=== PATIENT | female | born 1990 | race Caucasian/White ===

== ENCOUNTER 2016-07-10 14:06 | Emergency (ER) | payer MEDICAID ==
--- NOTE | 2016-07-10 14:29 | ER Document Report ---
ED Medical Screen (RME) - General Stated Complaint: PSYCH EVAL Mode of Arrival: Ambulatory Information source: Patient Notes: 26 y/o F presents to ED c/o SI. Reports hx of depression and similar episodes in the past. States "took a bunch of pills last night". Reports unknown amount or name of medication. Denies HI. I have greeted and performed a rapid initial assessment of this patient. A comprehensive ED assessment and evaluation of the patient, analysis of test results and completion of the medical decision making process will be conducted by additional ED providers. TRAVEL OUTSIDE OF THE U.S. IN LAST 30 DAYS: No - Related Data Allergies/Adverse Reactions: diphenhydramine HCl [From Benadryl] Allergy (Verified 03/23/16 10:51) latex [Latex] Allergy (Verified 03/23/16 10:51) amoxicillin [Amoxicillin] Adverse Reaction (Intermediate, Verified 03/23/16 10: 51) Hallucinations Past Medical History Neurological Medical History: Denies: Hx Seizures Renal/ Medical History: Reports: Hx Kidney Stones Psychiatric Medical History: Reports: Hx Bipolar Disorder, Hx Depression Past Surgical History: Reports: Hx Orthopedic Surgery - BL knee., Hx Tonsillectomy - and addenoidectomy. Denies: Hx Hysterectomy - Immunizations Hx Diphtheria, Pertussis, Tetanus Vaccination: No Physical Exam - Vital signs Vitals: Temp Pulse BP Pulse Ox 98.2 F 84 118/65 98 07/10/16 14:19 07/10/16 14:19 07/10/16 14:19 07/10/16 14:19 - General General appearance: Appears well, Alert In distress: None - calm and cooperative in RME. Course - Vital Signs Vital signs: Temp Pulse Resp BP Pulse Ox 98.2 F 84 118/65 98 07/10/16 14:19 07/10/16 14:19 07/10/16 14:19 07/10/16 14:19
[2016-07-10 15:05] LABS: ABSOLUTE EOSINOPHILS # (AUTO) 0.1 10^3/uL (0.0-0.6); ABSOLUTE LYMPHOCYTES (AUTO) 2.1 10^3/uL (0.5-4.7); ABSOLUTE MONOCYTES (AUTO) 0.7 10^3/uL (0.1-1.4); ABSOLUTE NEUT (AUTO) 5.9 10^3/uL (1.7-8.2); BASOPHILS % (AUTO) 0.2 % (0-2); HEMATOCRIT 43.3 % (36.0-47.0); HEMOGLOBIN 13.8 g/dL (12.0-15.5); HGB HCT DIFFERENCE -1.9; LYMPHOCYTES % (AUTO) 23.9 % (13-45); MEAN CORPUSCULAR HEMOGLOBIN 28.6 pg (27.0-33.4); MEAN CORPUSCULAR VOLUME 89 fl (80-97); MONOCYTES % (AUTO) 7.6 % (3-13); RED BLOOD COUNT 4.84 10^6/uL (3.72-5.28); RED CELL DISTRIBUTION WIDTH 13.4 % (11.5-14.0); SEGMENTED NEUTROPHILS % (AUTO) 67.3 % (42-78); WHITE BLOOD COUNT 8.8 10^3/uL (4.0-10.5)
[2016-07-10 15:25] LABS: ALANINE AMINOTRANSFERASE 25 U/L (9-52); ALBUMIN 4.8 g/dL (3.5-5.0); ALCOHOL < 10 mg/dL (NONE DETECTED); ALKALINE PHOSPHATASE 66 U/L (38-126); ANION GAP 13 (5-19); ASPARTATE AMINO TRANSFERASE 19 U/L (14-36); BILIRUBIN,TOTAL 0.7 mg/dL (0.2-1.3); BLOOD UREA NITROGEN 13 mg/dL (7-20); CALCIUM 9.9 mg/dL (8.4-10.2); CARBON DIOXIDE 26 mmol/L (22-30); CHLORIDE 104 mmol/L (98-107); CREATININE RESULT 0.78 mg/dL (0.52-1.25); GLUCOSE 91 mg/dL (75-110); POTASSIUM 4.4 mmol/L (3.6-5.0); SODIUM 142.5 mmol/L (137-145); TOTAL PROTEIN 7.5 g/dL (6.3-8.2)
--- NOTE | 2016-07-10 15:30 | ER Document Report ---
ED Psych Disorder / Suicide - General Time seen by provider: 14:50 Mode of Arrival: Ambulatory Information source: Patient, Friend, [facility] Records TRAVEL OUTSIDE OF THE U.S. IN LAST 30 DAYS: No <RICARDO PONCE - Last Filed: 07/10/16 16:06> <ESTRELLITA ROCHA - Last Filed: 07/11/16 11:49> - General Chief Complaint: Suicidal Ideation Stated Complaint: PSYCH EVAL Notes: This 26-year-old female patient with bipolar disorder and depression comes emergency room complaining of suicidal ideation. She states she took several of her medicines yesterday afternoon about 2:30 PM because she did not want to feel anything anymore. She cannot tell me the names of the medicines that she took, because she does not know the names of several of her medications. She gets her healthcare at [facility]. She states she still feels like she wants to harm herself. (RICARDO PONCE) - Related Data Allergies/Adverse Reactions: diphenhydramine HCl [From Benadryl] Allergy (Verified 03/23/16 10:51) latex [Latex] Allergy (Verified 03/23/16 10:51) amoxicillin [Amoxicillin] Adverse Reaction (Intermediate, Verified 03/23/16 10: 51) Hallucinations Home Medications: Current Home Medications Cariprazine Hydrochloride [Vraylar] 6 mg PO DAILY 07/10/16 [History] Clonazepam [Clonazepam] 0.5 mg PO BID PRN 07/10/16 [History] Dextroamphetamine/Amphetamine [Dextroamp-Amphetamin 30 mg Tab] 30 mg PO DAILY [History] Fluoxetine HCl [Fluoxetine HCl] 20 mg PO DAILY 07/10/16 [History] Hydroxyzine Pamoate [Vistaril 25 mg Capsule] 25 mg PO DAILY 07/10/16 [History] Past Medical History - General Information source: Patient - Social History Smoking Status: Current Every Day Smoker Cigarette use (# per day): Yes Chew tobacco use (# tins/day): No Smoking Education Provided: No Frequency of alcohol use: Social Drug Abuse: Marijuana Occupation: [employer] Lives with: Family Family History: Reviewed & Not Pertinent - pt is adopted unsure of family history Patient has suicidal ideation: Yes Patient has homicidal ideation: No - Past Medical History Cardiac Medical History: Reports: None Pulmonary Medical History: Reports: None EENT Medical History: Reports: None Neurological Medical History: Reports: None Endocrine Medical History: Reports: None Renal/ Medical History: Reports: Hx Kidney Stones GI Medical History: Reports: None Musculoskeltal Medical History: Reports None Skin Medical History: Reports None Psychiatric Medical History: Reports: Hx Bipolar Disorder, Hx Depression Past Surgical History: Reports: Hx Orthopedic Surgery - BL knee., Hx Tonsillectomy - and addenoidectomy - Immunizations Hx Diphtheria, Pertussis, Tetanus Vaccination: No <RICARDO PONCE - Last Filed: 07/10/16 16:06> Review of Systems - Review of Systems Constitutional: No symptoms reported EENT: No symptoms reported Cardiovascular: No symptoms reported Respiratory: No symptoms reported Gastrointestinal: No symptoms reported Genitourinary: No symptoms reported Female Genitourinary: No symptoms reported Musculoskeletal: No symptoms reported Skin: No symptoms reported Hematologic/Lymphatic: No symptoms reported Neurological/Psychological: Depression <RICARDO PONCE - Last Filed: 07/10/16 16:06> Physical Exam - Vital signs Interpretation: Normal - General General appearance: Appears well, Alert In distress: None - HEENT Head: Normocephalic, Atraumatic Eyes: Normal Pupils: PERRL Pharynx: Normal Neck: Normal - Respiratory Respiratory status: No respiratory distress Breath sounds: Normal - Cardiovascular Rhythm: Regular Heart sounds: Normal auscultation Murmur: No - Abdominal Inspection: Normal - Back Back: Normal - Extremities General upper extremity: Normal inspection General lower extremity: Normal inspection - Neurological Neuro grossly intact: Yes - Psychological Associated symptoms: Depressed - Skin Skin Temperature: Warm Skin Moisture: Dry Skin Color: Normal <RICARDO PONCE - Last Filed: 07/10/16 16:06> Course - Laboratory Result Diagrams: 07/10/16 14:44 07/10/16 14:44 <RICARDO PONCE - Last Filed: 07/10/16 16:06> - Laboratory Result Diagrams: 07/10/16 14:44 07/10/16 14:44 <ESTRELLITA ROCHA - Last Filed: 07/11/16 11:49> - Re-evaluation Re-evalutation: 07/11/16 11:48 Patient has remained asymptomatic during her stay in the emergency department and hemodynamically stable. She denies suicidal homicidal ideation currently denies any audio or visual hallucinations. Mental health providers also evaluated patient and she has outpatient referral scheduled and will be discharged in care of her mother. (ESTRELLITA ROCHA) - Vital Signs Vital signs: Temp Pulse Resp BP Pulse Ox 98.1 F 73 16 109/58 L 100 07/11/16 05:53 07/11/16 05:53 07/11/16 05:53 07/11/16 05:53 07/11/16 05:53 (RICARDO PONCE) (ESTRELLITA ROCHA) - Laboratory Laboratory results interpreted by me: 07/10/16 07/10/16 14:44 14:44 Urine Blood MODERATE H Salicylates < 1.0 L Acetaminophen < 10 L (ESTRELLITA ROCHA) Discharge <RICARDO PONCE - Last Filed: 07/10/16 16:06> <ESTRELLITA ROCHA - Last Filed: 07/11/16 11:49> - Discharge Clinical Impression: Suicidal ideation Overdose Qualifiers: Encounter type: initial encounter Injury intent: intentional self-harm Qualified Code(s): T50.902A - Poisoning by unspecified drugs, medicaments and biological substances, intentional self-harm, initial encounter Depression Qualifiers: Depression Type: unspecified Qualified Code(s): F32.9 - Major depressive disorder, single episode, unspecified Condition: Stable Disposition: HOME, SELF-CARE Additional Instructions: Bipolar Disorder Bipolar disorder is also called manic-depressive disorder. Depression alternates with brain hyperactivity called alyssia. Each phase lasts from several days to a few weeks. We don't know exactly what causes bipolar disorder , but it's treatable. During the "manic phase," you may feel elated and energetic. You may have racing thoughts, rapid speech, increased activity, and grandiose ideas. During this time, you may not realize how poor your judgement is. Inappropriate spending, drug abuse, excessive alcohol use, marriage problems, and irresponsible sexual behavior are common during the manic phase. During the "depressive phase," you might feel depressed, guilty, worthless , fatigued, and unable to concentrate. You might have thoughts of suicide. Good treatments are available for bipolar disorder. [place] is a classic drug for bipolar disorder, and is still often useful. If the manic phase is very mild, an antidepressant alone can be prescribed. If the manic phase is very severe, an antipsychotic medicine (such as Haldol) may be needed. The treatment must be matched to your symptoms, so it's important to work closely with your psychiatric care provider. Contact your physician, the hospital emergency center, crisis line, or your counsellor if you are losing control or having self-destructive thoughts. Follow-up with [facility] in [place] on July 15 10:40 AM. Follow-up with [facility] in [facility] for therapy on July 20 at 9 AM
[2016-07-10] MEDS ORDERED: NICOTINE 14 MG/24 HR PATCH.TD24 TD ONE (16:09)
[2016-07-10 16:29] LABS: APPEARANCE,URINE TURBID; BILIRUBIN,URINE NEGATIVE (NEGATIVE); GLUCOSE, URINE NEGATIVE (NEGATIVE); KETONES,URINE NEGATIVE (NEGATIVE); LEUKOCYTE ESTERASE,URINE NEGATIVE (NEGATIVE); NITRITE,URINE NEGATIVE (NEGATIVE); PROTEIN,URINE NEGATIVE (NEGATIVE); URINE SPECIFIC GRAVITY 1.021; UROBILINOGEN,URINE NEGATIVE mg/dL (<2.0)
[2016-07-10 16:40] LABS: URINE BARBITURATES SCREEN NEGATIVE; URINE METHADONE SCREEN NEGATIVE; URINE PHENCYCLIDINE SCREEN NEGATIVE
[2016-07-10] MEDS ORDERED: HYDROXYZINE PAMOATE 50 MG CAPSULE PO PRN (17:40)
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
--- NOTE | 2016-07-10 20:36 | EKG REPORT ---
SEVERITY:- NORMAL ECG - SINUS RHYTHM : Confirmed by: Jared Duffy MD 10-Jul-2016 20:35:20
--- NOTE | 2016-07-11 10:06 | PSYCHOLOGICAL NOTE ---
Psych Note - Psych Note Psych Note: Conducted check-in on patient who is a 26-year-old female voluntarily seeking assistance for her symptoms associated with bipolar disorder. Patient initially presented via her ex- do to increased mood lability, suicidal ideations (with no intent or plan) depression, and tearfulness. Patient this morning states she is feeling better and got some rest. Patient reports she had time to think overnight and has reevaluated her personal relationship. Patient denies wanting to harm herself. Patient reports she would prefer to follow-up with her provider, [facility], tomorrow at her scheduled counseling session. Patient states her mother is likely back from [place]. Encouraged patient to call her mother and asked her to come to the hospital to review precautionary measures for potential discharge in plan of care. Patient denies suicidal/homicidal ideations, intent, plan, means. Patient's mother states: [facility] Patient is alert and oriented. Mood is euthymic with normal affect. Patient denies suicidal/homicidal ideations, intent, plan, means. Patient denies A/VH; delusions not noted. Thought processes were organized. Conversational speech was low for rate, tone, and prosody. Intellectual abilities were estimated within average range. Attention and focus were fair. Insight, judgment, impulse control were fair. Unspecified bipolar and related disorder.
[2016-07-11 12:02] VITALS: BP 122/57
== END 2016-07-11 12:08 | disposition home or self-care (01) ==
LOC: ER 14:06
DX: T50.902A Poisoning by unspecified drugs, medicaments and biological substances, intentional self-harm, initial encounter (principal); F31.9 Bipolar disorder, unspecified; F17.210 Nicotine dependence, cigarettes, uncomplicated; Z88.8 Allergy status to other drugs, medicaments and biological substances; Z91.040 Latex allergy status
CPT/HCPCS: 93005; 99285; 36415; 80307 ×4; 84703; 85025; 80053; 81001; 93010; J3490 ×2

== ENCOUNTER → 2016-10-26 | Outpatient (CLI) | payer MEDICAID ==
[2016-10-26 21:41] LABS: CHLAM PCR DETECTED (NOT DETECT)
== END ==
LOC: LAB 20:05 → MERGE 20:05
PROVIDERS: ATTEND Nurse Practitioner Acute Care
DX: N89.8 Other specified noninflammatory disorders of vagina (principal)
CPT/HCPCS: 87210; 87491; 87591

== ENCOUNTER 2017-03-07 11:10 | Emergency (ER) | payer SELFPAY ==
--- NOTE | 2017-03-07 11:56 | ER Document Report ---
ED Medical Screen (RME) - General Chief Complaint: Abdominal Pain Stated Complaint: VOMITING Time Seen by Provider: 03/07/17 11:55 Notes: Patient reports 2 weeks of intermittent abdominal pain. Pain is diffuse. She states she has been vomiting daily and that she has dark foul-smelling bowel movements. She denies any urinary symptoms. She states she is also had decreased appetite. She denies any previous abdominal surgeries. TRAVEL OUTSIDE OF THE U.S. IN LAST 30 DAYS: No - Related Data Allergies/Adverse Reactions: diphenhydramine HCl [From Benadryl] Allergy (Verified 03/07/17 11:33) latex [Latex] Allergy (Verified 03/07/17 11:33) amoxicillin [Amoxicillin] Adverse Reaction (Intermediate, Verified 03/07/17 11: 33) Hallucinations Past Medical History Neurological Medical History: Denies: Hx Seizures Renal/ Medical History: Reports: Hx Kidney Stones. Denies: Hx Peritoneal Dialysis Psychiatric Medical History: Reports: Hx Bipolar Disorder, Hx Depression Past Surgical History: Reports: Hx Orthopedic Surgery - BL knee., Hx Tonsillectomy - and addenoidectomy. Denies: Hx Hysterectomy - Immunizations Hx Diphtheria, Pertussis, Tetanus Vaccination: No Physical Exam - Vital signs Vitals: Temp Pulse Resp BP Pulse Ox 98.1 F 88 16 126/82 H 100 03/07/17 11:33 03/07/17 11:33 03/07/17 11:33 03/07/17 11:33 03/07/17 11:33 Course - Vital Signs Vital signs: Temp Pulse Resp BP Pulse Ox 98.1 F 88 16 126/82 H 100 03/07/17 11:33 03/07/17 11:33 03/07/17 11:33 03/07/17 11:33 03/07/17 11:33
[2017-03-07 12:33] LABS: ABSOLUTE EOSINOPHILS # (AUTO) 0.1 10^3/uL (0.0-0.6); ABSOLUTE LYMPHOCYTES (AUTO) 2.3 10^3/uL (0.5-4.7); ABSOLUTE MONOCYTES (AUTO) 0.7 10^3/uL (0.1-1.4); ABSOLUTE NEUT (AUTO) 7.2 10^3/uL (1.7-8.2); BASOPHILS % (AUTO) 0.3 % (0-2); EOSINOPHILS % (AUTO) 1.1 % (0-6); HEMATOCRIT 42.7 % (36.0-47.0); HEMOGLOBIN 14.7 g/dL (12.0-15.5); HGB HCT DIFFERENCE 1.4; MEAN CORPUSCULAR HEMOGLOBIN 30.4 pg (27.0-33.4); MEAN CORPUSCULAR HGB CONC 34.4 g/dL (32.0-36.0); MEAN CORPUSCULAR VOLUME 88 fl (80-97); MONOCYTES % (AUTO) 7.1 % (3-13); RED BLOOD COUNT 4.83 10^6/uL (3.72-5.28); RED CELL DISTRIBUTION WIDTH 13.3 % (11.5-14.0); SEGMENTED NEUTROPHILS % (AUTO) 69.5 % (42-78); WHITE BLOOD COUNT 10.4 10^3/uL (4.0-10.5)
[2017-03-07 12:42] LABS: AMORPHOUS SEDIMENT,URINE TRACE /HPF; APPEARANCE,URINE CLOUDY; BILIRUBIN,URINE NEGATIVE (NEGATIVE); GLUCOSE, URINE NEGATIVE (NEGATIVE); KETONES,URINE NEGATIVE (NEGATIVE); LEUKOCYTE ESTERASE,URINE NEGATIVE (NEGATIVE); NITRITE,URINE NEGATIVE (NEGATIVE); PROTEIN,URINE NEGATIVE (NEGATIVE); URINE SPECIFIC GRAVITY 1.012; UROBILINOGEN,URINE NEGATIVE mg/dL (<2.0)
[2017-03-07] MEDS ORDERED: ONDANSETRON HCL INJ/PF 4 MG/2 ML SDV IV ONE (12:51)
[2017-03-07] MEDS ORDERED: MORPHINE SULFATE 10 MG/ML INJ IV ONE (12:52)
[2017-03-07 12:53] LABS: ALANINE AMINOTRANSFERASE 21 U/L (9-52); ALKALINE PHOSPHATASE 73 U/L (38-126); ANION GAP 13 (5-19); ASPARTATE AMINO TRANSFERASE 17 U/L (14-36); BILIRUBIN,DIRECT 0.4 mg/dL (0.0-0.4); BILIRUBIN,TOTAL 0.5 mg/dL (0.2-1.3); BLOOD UREA NITROGEN 13 mg/dL (7-20); CALCIUM 10.2 mg/dL (8.4-10.2); CARBON DIOXIDE 25 mmol/L (22-30); CHLORIDE 103 mmol/L (98-107); CREATININE RESULT 0.85 mg/dL (0.52-1.25); GLUCOSE 81 mg/dL (75-110); POTASSIUM 4.4 mmol/L (3.6-5.0); SODIUM 140.5 mmol/L (137-145); TOTAL PROTEIN 8.1 g/dL (6.3-8.2)
[2017-03-07] MEDS ORDERED: IBUPROFEN 800 MG TABLET PO ONE (14:31)
--- NOTE | 2017-03-07 14:55 | ER Document Report ---
ED GI/ - General Chief Complaint: Abdominal Pain Stated Complaint: VOMITING Time Seen by Provider: 03/07/17 11:55 Mode of Arrival: Ambulatory Information source: Patient Notes: 27-year-old female presents to ED for complaint of abdominal pain. She told the people in pit that it was right lower quadrant but when I assessed of the pain is generalized there is no pain in the right lower quadrant but there is pain in the right upper left upper and left lower quadrants. TRAVEL OUTSIDE OF THE U.S. IN LAST 30 DAYS: No - HPI Patient complains to provider of: Abdominal pain, Pelvic pain Onset: Other - 2 weeks Timing/Duration: Intermittent Quality of pain: Sharp, Throbbing Severity at maximum: Severe Severity in ED: Severe Pain Level: 5 Location: LUQ, LLQ, RUQ, Pelvis, Vaginal Vaginal bleeding (Compared to normal period): None Associated symptoms: Nausea, Other - Sore breast Exacerbated by: Movement, Walking Relieved by: Denies Similar symptoms previously: Yes Recently seen / treated by doctor: No - Related Data Allergies/Adverse Reactions: diphenhydramine HCl [From Benadryl] Allergy (Verified 03/07/17 11:33) latex [Latex] Allergy (Verified 03/07/17 11:33) amoxicillin [Amoxicillin] Adverse Reaction (Intermediate, Verified 03/07/17 11: 33) Hallucinations Past Medical History - General Information source: Patient - Social History Smoking Status: Current Every Day Smoker Cigarette use (# per day): Yes - Half pack per day Chew tobacco use (# tins/day): No Smoking Education Provided: Yes - Less than 2 minutes Frequency of alcohol use: Occasional Drug Abuse: None Occupation: [employer] Lives with: Spouse/Significant other Family History: Reviewed & Not Pertinent - pt is adopted unsure of family history Patient has suicidal ideation: No Patient has homicidal ideation: No - Past Medical History Cardiac Medical History: Reports: None Pulmonary Medical History: Reports: None EENT Medical History: Reports: None Neurological Medical History: Reports: None Endocrine Medical History: Reports: None Renal/ Medical History: Reports: Hx Kidney Stones Malignancy Medical History: Reports: None GI Medical History: Reports: None Musculoskeltal Medical History: Reports None Skin Medical History: Reports None Psychiatric Medical History: Reports: Hx Bipolar Disorder, Hx Depression Traumatic Medical History: Reports: None Infectious Medical History: Reports: None Past Surgical History: Reports: Hx Orthopedic Surgery - BL knee., Hx Tonsillectomy - and addenoidectomy - Immunizations Hx Diphtheria, Pertussis, Tetanus Vaccination: No Review of Systems - Review of Systems Constitutional: No symptoms reported EENT: No symptoms reported Cardiovascular: No symptoms reported Respiratory: No symptoms reported Gastrointestinal: Abdominal pain - Pelvic pain and generalized abdominal pain, Nausea Genitourinary: No symptoms reported Female Genitourinary: No symptoms reported Musculoskeletal: No symptoms reported Skin: No symptoms reported Hematologic/Lymphatic: No symptoms reported Neurological/Psychological: No symptoms reported -: Yes All other systems reviewed and negative Physical Exam - Vital signs Vitals: Temp Pulse Resp BP Pulse Ox 98.1 F 88 16 126/82 H 100 03/07/17 11:33 03/07/17 11:33 03/07/17 11:33 03/07/17 11:33 03/07/17 11:33 Interpretation: Normal - General General appearance: Appears well, Alert - HEENT Head: Normocephalic, Atraumatic Eyes: Normal Pupils: PERRL - Respiratory Respiratory status: No respiratory distress Chest status: Nontender Breath sounds: Normal Chest palpation: Normal - Cardiovascular Rhythm: Regular Heart sounds: Normal auscultation Murmur: No - Abdominal Inspection: Normal Distension: No distension Bowel sounds: Normal Tenderness: Tender - Generalized Organomegaly: No organomegaly - Genitourinary External exam: Normal Speculum exam: Cervix closed, Vaginal discharge Vaginal bleeding: None - Minimal Bimanuel exam: Cervical motion tender, Adnexal tenderness - Back Back: Normal, Nontender - Extremities General upper extremity: Normal inspection, Nontender, Normal color, Normal ROM , Normal temperature General lower extremity: Normal inspection, Nontender, Normal color, Normal ROM , Normal temperature, Normal weight bearing. No: Courtney's sign - Neurological Neuro grossly intact: Yes Cognition: Normal Orientation: AAOx4 Prakash Coma Scale Eye Opening: Spontaneous Prakash Coma Scale Verbal: Oriented Bonham Coma Scale Motor: Obeys Commands Prakash Coma Scale Total: 15 Speech: Normal Motor strength normal: LUE, RUE, LLE, RLE Sensory: Normal - Psychological Associated symptoms: Normal affect, Normal mood - Skin Skin Temperature: Warm Skin Moisture: Dry Skin Color: Normal Course - Re-evaluation Re-evalutation: 03/07/17 16:52 Discussed labs and ultrasound with patient. Reports given to patient to follow- up with her primary doctor. Patient was discharged home - Vital Signs Vital signs: Temp Pulse Resp BP Pulse Ox 98.7 F 78 15 142/74 H 98 03/07/17 15:07 03/07/17 15:07 03/07/17 15:07 03/07/17 15:07 03/07/17 15:07 - Laboratory Result Diagrams: 03/07/17 12:13 03/07/17 12:13 Laboratory results interpreted by me: 03/07/17 11:57 Urine Blood SMALL H - Diagnostic Test Radiology reviewed: Image reviewed, Reports reviewed Discharge - Discharge Clinical Impression: Abdominal pain Qualifiers: Abdominal location: generalized Qualified Code(s): R10.84 - Generalized abdominal pain Condition: Stable Disposition: HOME, SELF-CARE Additional Instructions: ABDOMINAL PAIN: There are many causes of abdominal pain. Pain can mean a serious problem requiring surgery (such as appendicitis). It can also be an innocent problem that goes away on its own (such as a viral infection). Often, time must pass to determine the cause of pain. The physician does not feel that hospitalization is necessary, at present. Things may change within the next 24 hours. Call the doctor or come back for re- examination if any problems occur, such as: (1) Pain that becomes more severe, steady, or becomes concentrated in one specific area. Also, pain that is more severe with movement or coughing. (2) Vomiting that persists or becomes more frequent. (3) Blood in the vomitus, urine, or bowel movements. Blood in the stool may have a tarry or black appearance. (4) Shaking chills or fever greater than 100 degrees F. (5) The abdomen becomes more distended or swollen. (6) Bowel movements cease. (7) Failure to improve as expected. NORMAL EXAM AND WORKUP: At this time, your examination and workup show no significant abnormality. No significant abnormal physical findings are noted. All laboratory, EKG, and imaging (x-ray, CT scans, ultrasound) studies that were ordered show no significant abnormality. Although your examination and all studies that were ordered showed no significant abnormal finding, there are no examinations and no studies that are 100% accurate. There is always the possibility that some abnormality could exist and not be detected with physical examination or within the limits and capabilities of laboratory and other studies. You should return or follow up as you were instructed on your visit today for further evaluation if your symptoms do not resolve. PAIN MEDICATION INJECTION: You have received an injection of a pain medication. You should experience significant pain relief within 45 minutes. This drug is a narcotic - - it will impair your judgement, slow your reaction time and make you sleepy ( as well as relieve your pain). Narcotics also can cause nausea. You should not drive, work with machinery, or perform any task requiring mental alertness until all effects of the medication are gone -- six to eight hours. Do not take any alcohol, or sedatives, and do not take any other medication without checking with your physician. ANTINAUSEA MEDICATION: You have been given a medication to suppress nausea and vomiting. This type of medication can be given as a shot, pill, or suppository. It will usually last for many hours. Pills and shots usually last six to eight hours, suppositories last about 12 hours. For the typical illness, only one or two doses of the medication may be necessary. Mild lightheadedness may occur. This type of medicine can cause drowsiness. Do not drive or operate dangerous machinery while under its influence. Do not mix with alcohol. See your doctor at once if you have muscle spasms or tightness, or uncontrollable motions (particularly of the neck, mouth, or jaw). Persistent vomiting or severe lightheadedness should also be evaluated by the physician. FOLLOW-UP CARE: If you have been referred to a physician for follow-up care, call the physician s office for an appointment as you were instructed or within the next two days. If you experience worsening or a significant change in your symptoms, notify the physician immediately or return to the Emergency Department at any time for re-evaluation. Forms: Elevated Blood Pressure, Smoking Cessation Education, Return to Work Referrals: [facility] [Provider Group] - Follow up as needed
[2017-03-07 16:20] LABS: CHLAM PCR NOT DETECTED (NOT DETECT)
--- NOTE | 2017-03-07 16:21 | RADIOLOGY REPORT (SQ) ---
EXAM DESCRIPTION: U/S NON-OB PELVIS TV W/O DOP COMPLETED DATE/TIME: 03/07/2017 4:10 pm REASON FOR STUDY: pelvic pain COMPARISON: 06/19/2015. TECHNIQUE: Dynamic and static grayscale images acquired of the pelvis via transvaginal approach and recorded on PACS. Additional selected color Doppler and spectral images recorded. LIMITATIONS: None. FINDINGS: UTERUS: Contour normal. No mass. ENDOMETRIAL STRIPE: No focal or generalized thickening. No masses. CERVIX: No nabothian cysts. RIGHT OVARY: Poorly visualized. 2.4 cm simple appearing cyst. RIGHT OVARY DOPPLER: Difficult to evaluate due to limited visualization. LEFT OVARY: No abnormal masses. LEFT OVARY DOPPLER: Normal arterial vascular flow without evidence for torsion. FREE FLUID: None noted. OTHER: No other significant finding. MEASUREMENTS: UTERUS: 4.5 x 4.9 x 9.0 cm. ENDOMETRIAL STRIPE: 11 mm. RIGHT OVARY: Poorly visualized. LEFT OVARY: 2.3 x 2.6 x 3.2 cm. IMPRESSION: THE RIGHT OVARY IS DIFFICULT TO VISUALIZE. THERE IS A 2.4 CM SIMPLE CYST, SIMILAR TO TH E PRIOR STUDY. NO OTHER SIGNIFICANT FINDING. TECHNICAL DOCUMENTATION: JOB ID: [id number] [employer]- All Rights Reserved
[2017-03-07 17:04] VITALS: BP 119/63
== END 2017-03-07 17:04 | disposition home or self-care (01) ==
LOC: ER 11:10
DX: R10.84 Generalized abdominal pain (principal); R10.31 Right lower quadrant pain; R11.0 Nausea; F17.210 Nicotine dependence, cigarettes, uncomplicated; Z91.040 Latex allergy status; Z88.0 Allergy status to penicillin; Z87.442 Personal history of urinary calculi
CPT/HCPCS: 99284; 96374; 96375; 36415; 87210; 85025; 81025; 80053; 81001; 87491; 87591; 76830; J2270; J2405

== ENCOUNTER 2017-04-06 14:47 | Emergency (ER) | payer SELFPAY ==
[2017-04-06 14:59] VITALS: BP 123/81
[2017-04-06] MEDS ORDERED: METOCLOPRAMIDE HCL 10 MG TABLET PO ONE (15:08)
[2017-04-06 15:34] LABS: ABSOLUTE EOSINOPHILS # (AUTO) 0.2 10^3/uL (0.0-0.6); ABSOLUTE LYMPHOCYTES (AUTO) 2.5 10^3/uL (0.5-4.7); ABSOLUTE MONOCYTES (AUTO) 0.7 10^3/uL (0.1-1.4); ABSOLUTE NEUT (AUTO) 7.7 10^3/uL (1.7-8.2); BASOPHILS % (AUTO) 0.4 % (0-2); EOSINOPHILS % (AUTO) 1.5 % (0-6); HEMATOCRIT 42.8 % (36.0-47.0); HEMOGLOBIN 14.8 g/dL (12.0-15.5); HGB HCT DIFFERENCE 1.6; LYMPHOCYTES % (AUTO) 22.4 % (13-45); MEAN CORPUSCULAR HEMOGLOBIN 30.3 pg (27.0-33.4); MEAN CORPUSCULAR HGB CONC 34.7 g/dL (32.0-36.0); MEAN CORPUSCULAR VOLUME 88 fl (80-97); MONOCYTES % (AUTO) 6.2 % (3-13); RED BLOOD COUNT 4.89 10^6/uL (3.72-5.28); RED CELL DISTRIBUTION WIDTH 12.7 % (11.5-14.0); SEGMENTED NEUTROPHILS % (AUTO) 69.5 % (42-78); WHITE BLOOD COUNT 11.1 10^3/uL (4.0-10.5)
[2017-04-06 15:55] LABS: ALANINE AMINOTRANSFERASE 30 U/L (9-52); ALBUMIN 5.1 g/dL (3.5-5.0); ALKALINE PHOSPHATASE 79 U/L (38-126); ANION GAP 13 (5-19); ASPARTATE AMINO TRANSFERASE 18 U/L (14-36); BILIRUBIN,DIRECT 0.4 mg/dL (0.0-0.4); BILIRUBIN,TOTAL 0.4 mg/dL (0.2-1.3); BLOOD UREA NITROGEN 14 mg/dL (7-20); CALCIUM 9.9 mg/dL (8.4-10.2); CARBON DIOXIDE 25 mmol/L (22-30); CHLORIDE 106 mmol/L (98-107); CREATININE RESULT 0.89 mg/dL (0.52-1.25); GLUCOSE 89 mg/dL (75-110); LIPASE 72.5 U/L (23-300); POTASSIUM 4.3 mmol/L (3.6-5.0); SODIUM 144.3 mmol/L (137-145); TOTAL PROTEIN 8.5 g/dL (6.3-8.2)
--- NOTE | 2017-04-06 16:50 | ER Document Report ---
ED General - General Chief Complaint: Abdominal Pain Stated Complaint: FLU LIKE SYMPTOMS Time Seen by Provider: 04/06/17 15:07 TRAVEL OUTSIDE OF THE [place] IN LAST 30 DAYS: No - HPI Patient complains to provider of: Nausea vomiting burning abdominal pain Notes: Patient is coming in for evaluation of nausea vomiting burning abdominal pain. Patient resting comfortably upon my evaluation no signs of any obvious distress of symptoms ongoing for the last 24 hours. Patient is very concerned that she may be due to missed.. Denies any other symptoms denies fever chills chest pain - Related Data Allergies/Adverse Reactions: diphenhydramine HCl [From Benadryl] Allergy (Verified 04/06/17 14:59) latex [Latex] Allergy (Verified 04/06/17 14:59) amoxicillin [Amoxicillin] Adverse Reaction (Intermediate, Verified 04/06/17 14: 59) Hallucinations Past Medical History - Social History Smoking Status: Current Every Day Smoker Chew tobacco use (# tins/day): No Frequency of alcohol use: None Drug Abuse: None Family History: Reviewed & Not Pertinent - pt is adopted unsure of family history Neurological Medical History: Denies: Hx Seizures Renal/ Medical History: Reports: Hx Kidney Stones. Denies: Hx Peritoneal Dialysis Psychiatric Medical History: Reports: Hx Bipolar Disorder, Hx Depression Past Surgical History: Reports: Hx Orthopedic Surgery - BL knee., Hx Tonsillectomy - and addenoidectomy. Denies: Hx Hysterectomy - Immunizations Hx Diphtheria, Pertussis, Tetanus Vaccination: No Review of Systems - Review of Systems Constitutional: No symptoms reported EENT: No symptoms reported Cardiovascular: No symptoms reported Respiratory: No symptoms reported Gastrointestinal: Abdominal pain, Nausea, Vomiting Genitourinary: No symptoms reported Female Genitourinary: No symptoms reported Musculoskeletal: No symptoms reported Skin: No symptoms reported Hematologic/Lymphatic: No symptoms reported Neurological/Psychological: No symptoms reported -: Yes All other systems reviewed and negative Physical Exam - Vital signs Vitals: Temp Pulse Resp BP Pulse Ox 98.9 F 94 16 123/81 97 04/06/17 14:57 04/06/17 14:57 04/06/17 14:57 04/06/17 14:57 04/06/17 14:57 Interpretation: Normal - General General appearance: Appears well, Alert - HEENT Head: Normocephalic, Atraumatic Eyes: Normal Pupils: PERRL - Respiratory Respiratory status: No respiratory distress Chest status: Nontender Breath sounds: Normal Chest palpation: Normal - Cardiovascular Rhythm: Regular Heart sounds: Normal auscultation Murmur: No - Abdominal Inspection: Normal Distension: No distension Bowel sounds: Normal Tenderness: Nontender Organomegaly: No organomegaly - Back Back: Normal, Nontender - Extremities General upper extremity: Normal inspection, Nontender, Normal color, Normal ROM , Normal temperature General lower extremity: Normal inspection, Nontender, Normal color, Normal ROM , Normal temperature, Normal weight bearing. No: Courtney's sign - Neurological Neuro grossly intact: Yes Cognition: Normal Orientation: AAOx4 Milton Coma Scale Eye Opening: Spontaneous Prakash Coma Scale Verbal: Oriented Milton Coma Scale Motor: Obeys Commands Milton Coma Scale Total: 15 Speech: Normal Motor strength normal: LUE, RUE, LLE, RLE Sensory: Normal - Psychological Associated symptoms: Normal affect, Normal mood - Skin Skin Temperature: Warm Skin Moisture: Dry Skin Color: Normal Course - Re-evaluation Re-evalutation: 04/06/17 20:13 Clinical The patient presents with abdominal pain without signs of peritonitis or other life-threatening or serious etiology. The patient appears stable for discharge and has been instructed to return immediately if the symptoms worsen in any way, or in 8-12hr if not improved for re-evaluation. The patient has been instructed to return if the symptoms worsen or change in any way. - Vital Signs Vital signs: Temp Pulse Resp BP Pulse Ox 98.9 F 94 16 123/81 97 04/06/17 14:57 04/06/17 14:57 04/06/17 14:57 04/06/17 14:57 04/06/17 14:57 - Laboratory Result Diagrams: 04/06/17 15:20 04/06/17 15:20 Laboratory results interpreted by me: 04/06/17 04/06/17 15:20 15:20 WBC 11.1 H Total Protein 8.5 H Albumin 5.1 H Discharge - Discharge Clinical Impression: Nausea & vomiting Qualifiers: Vomiting type: unspecified Vomiting Intractability: unspecified Qualified Code( s): R11.2 - Nausea with vomiting, unspecified Condition: Good Disposition: HOME, SELF-CARE Instructions: Gastroenteritis (adult) ([facility]) Additional Instructions: Your laboratory studies not show any signs of significant pathology. More likely have a viral illness. Your test is negative. Follow-up with your primary care physician. Prescriptions: Promethazine HCl [Phenergan 25 mg Tablet] 25 mg PO Q4HP PRN #20 tablet PRN Reason: Ondansetron [Zofran Odt 4 mg Tablet] 1 - 2 tab PO Q4H PRN #30 tab.rapdis PRN Reason: For Nausea/Vomiting
== END 2017-04-06 17:06 | disposition home or self-care (01) ==
LOC: ER 14:47
DX: R11.2 Nausea with vomiting, unspecified (principal); R10.9 Unspecified abdominal pain; F17.200 Nicotine dependence, unspecified, uncomplicated; Z91.040 Latex allergy status; Z88.0 Allergy status to penicillin; Z87.442 Personal history of urinary calculi
CPT/HCPCS: 36415; 80053; 83690; 84702; 85025; 99283

== ENCOUNTER 2017-05-01 19:24 | Emergency (ER) | payer SELFPAY ==
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
[2017-05-01] MEDS ORDERED: METOCLOPRAMIDE HCL 10 MG TABLET PO ONE (20:33)
[2017-05-01 20:52] LABS: APPEARANCE,URINE SLIGHTLY-CLOUDY; BILIRUBIN,URINE NEGATIVE (NEGATIVE); GLUCOSE, URINE NEGATIVE (NEGATIVE); KETONES,URINE NEGATIVE (NEGATIVE); LEUKOCYTE ESTERASE,URINE NEGATIVE (NEGATIVE); NITRITE,URINE NEGATIVE (NEGATIVE); PROTEIN,URINE NEGATIVE (NEGATIVE); URINE SPECIFIC GRAVITY 1.013; UROBILINOGEN,URINE NEGATIVE mg/dL (<2.0)
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
[2017-05-01 21:27] LABS: ABSOLUTE BASOPHILS # (AUTO) 0.1 10^3/uL (0.0-0.2); ABSOLUTE LYMPHOCYTES (AUTO) 2.5 10^3/uL (0.5-4.7); ABSOLUTE MONOCYTES (AUTO) 0.8 10^3/uL (0.1-1.4); ABSOLUTE NEUT (AUTO) 9.5 10^3/uL (1.7-8.2); BASOPHILS % (AUTO) 0.5 % (0-2); EOSINOPHILS % (AUTO) 0.2 % (0-6); HEMATOCRIT 40.2 % (36.0-47.0); HEMOGLOBIN 13.8 g/dL (12.0-15.5); HGB HCT DIFFERENCE 1.2; LYMPHOCYTES % (AUTO) 19.1 % (13-45); MEAN CORPUSCULAR HEMOGLOBIN 29.8 pg (27.0-33.4); MEAN CORPUSCULAR HGB CONC 34.2 g/dL (32.0-36.0); MEAN CORPUSCULAR VOLUME 87 fl (80-97); MONOCYTES % (AUTO) 6.4 % (3-13); RED BLOOD COUNT 4.61 10^6/uL (3.72-5.28); RED CELL DISTRIBUTION WIDTH 13.3 % (11.5-14.0); SEGMENTED NEUTROPHILS % (AUTO) 73.8 % (42-78); WHITE BLOOD COUNT 12.9 10^3/uL (4.0-10.5)
[2017-05-01 21:53] LABS: ALANINE AMINOTRANSFERASE 43 U/L (9-52); ALBUMIN 4.8 g/dL (3.5-5.0); ALKALINE PHOSPHATASE 66 U/L (38-126); ANION GAP 12 (5-19); ASPARTATE AMINO TRANSFERASE 29 U/L (14-36); BILIRUBIN,DIRECT 0.3 mg/dL (0.0-0.4); BILIRUBIN,TOTAL 0.4 mg/dL (0.2-1.3); BLOOD UREA NITROGEN 9 mg/dL (7-20); CALCIUM 9.5 mg/dL (8.4-10.2); CARBON DIOXIDE 25 mmol/L (22-30); CHLORIDE 103 mmol/L (98-107); CREATININE RESULT 0.57 mg/dL (0.52-1.25); GLUCOSE 86 mg/dL (75-110); POTASSIUM 3.7 mmol/L (3.6-5.0); TOTAL PROTEIN 7.5 g/dL (6.3-8.2)
[2017-05-01] MEDS ORDERED: ACETAMINOPHEN 325 MG TABLET PO ONE (22:10)
[2017-05-01 22:35] VITALS: BP 116/82
== END 2017-05-01 22:33 | disposition home or self-care (01) ==
LOC: ER 19:24
DX: Z04.1 Encounter for examination and observation following transport accident (principal); V43.52XA Car driver injured in collision with other type car in traffic accident, initial encounter; O26.891 Other specified pregnancy related conditions, first trimester; R10.30 Lower abdominal pain, unspecified; R11.0 Nausea; Z3A.01 Less than 8 weeks gestation of pregnancy; Z88.8 Allergy status to other drugs, medicaments and biological substances; Z91.040 Latex allergy status; Z87.442 Personal history of urinary calculi
CPT/HCPCS: 36415; 80053; 81001; 84702; 85025; 86900; 86901; 99284

== ENCOUNTER 2017-07-26 10:53 | Emergency (ER) | payer MEDICAID ==
--- NOTE | 2017-07-26 11:31 | ER Document Report ---
ED Medical Screen (RME) - General Chief Complaint: Vaginal Discharge Stated Complaint: DECREASED MOVEMENT Time Seen by Provider: 07/26/17 11:29 Notes: Patient presents and states that she thinks she may be about 19 weeks . She states she has only been seen at the [facility] and has seen no other physicians. She states at approximately 9 week she did have an ultrasound. She states she was told that this ultrasound had "abnormalities". She does not know what these abnormalities were. She states she now has pain and discharge from her urethra (she believes). She states she has not felt the baby move since 5 days ago. TRAVEL OUTSIDE OF THE [place] IN LAST 30 DAYS: No - Related Data Allergies/Adverse Reactions: diphenhydramine HCl [From Benadryl] Allergy (Verified 04/06/17 14:59) latex [Latex] Allergy (Verified 04/06/17 14:59) amoxicillin [Amoxicillin] Adverse Reaction (Intermediate, Verified 04/06/17 14: 59) Hallucinations Past Medical History - Social History Chew tobacco use (# tins/day): No Frequency of alcohol use: None Drug Abuse: None Neurological Medical History: Denies: Hx Seizures Renal/ Medical History: Reports: Hx Kidney Stones. Denies: Hx Peritoneal Dialysis Psychiatric Medical History: Reports: Hx Bipolar Disorder, Hx Depression Past Surgical History: Reports: Hx Orthopedic Surgery - BL knee., Hx Tonsillectomy - and addenoidectomy. Denies: Hx Hysterectomy - Immunizations Hx Diphtheria, Pertussis, Tetanus Vaccination: No Physical Exam - Vital signs Vitals: Temp Pulse Resp BP Pulse Ox 98.1 F 97 18 109/65 98 07/26/17 11:19 07/26/17 11:19 07/26/17 11:19 07/26/17 11:19 07/26/17 11:19 Course - Vital Signs Vital signs: Temp Pulse Resp BP Pulse Ox 98.1 F 97 18 109/65 98 07/26/17 11:19 07/26/17 11:19 07/26/17 11:19 07/26/17 11:19 07/26/17 11:19
[2017-07-26 12:07] LABS: ABSOLUTE EOSINOPHILS # (AUTO) 0.1 10^3/uL (0.0-0.6); ABSOLUTE MONOCYTES (AUTO) 0.5 10^3/uL (0.1-1.4); BASOPHILS % (AUTO) 0.2 % (0-2); EOSINOPHILS % (AUTO) 1.1 % (0-6); HEMATOCRIT 35.1 % (36.0-47.0); HEMOGLOBIN 11.9 g/dL (12.0-15.5); LYMPHOCYTES % (AUTO) 17.5 % (13-45); MEAN CORPUSCULAR HEMOGLOBIN 30.1 pg (27.0-33.4); MEAN CORPUSCULAR VOLUME 89 fl (80-97); MONOCYTES % (AUTO) 4.6 % (3-13); PLATELET COUNT 215 10^3/uL (150-450); RED BLOOD COUNT 3.95 10^6/uL (3.72-5.28); RED CELL DISTRIBUTION WIDTH 13.5 % (11.5-14.0); SEGMENTED NEUTROPHILS % (AUTO) 76.6 % (42-78); TOTAL CELLS COUNTED % (AUTO) 100 %; WHITE BLOOD COUNT 11.7 10^3/uL (4.0-10.5)
[2017-07-26 12:18] LABS: APPEARANCE,URINE SLIGHTLY-CLOUDY; BILIRUBIN,URINE NEGATIVE (NEGATIVE); COLOR,URINE YELLOW; GLUCOSE, URINE 50 mg/dL (NEGATIVE); KETONES,URINE NEGATIVE (NEGATIVE); LEUKOCYTE ESTERASE,URINE NEGATIVE (NEGATIVE); NITRITE,URINE NEGATIVE (NEGATIVE); PROTEIN,URINE NEGATIVE (NEGATIVE); URINE SPECIFIC GRAVITY 1.014; UROBILINOGEN,URINE NEGATIVE mg/dL (<2.0)
[2017-07-26 12:29] LABS: ALANINE AMINOTRANSFERASE 26 U/L (9-52); ALBUMIN 3.8 g/dL (3.5-5.0); ALKALINE PHOSPHATASE 44 U/L (38-126); ANION GAP 9 (5-19); ASPARTATE AMINO TRANSFERASE 21 U/L (14-36); BILIRUBIN,DIRECT 0.2 mg/dL (0.0-0.4); BILIRUBIN,TOTAL 0.2 mg/dL (0.2-1.3); BLOOD UREA NITROGEN 8 mg/dL (7-20); CALCIUM 9.8 mg/dL (8.4-10.2); CARBON DIOXIDE 23 mmol/L (22-30); CHLORIDE 105 mmol/L (98-107); GLUCOSE 101 mg/dL (75-110); POTASSIUM 4.2 mmol/L (3.6-5.0); SODIUM 136.6 mmol/L (137-145); TOTAL PROTEIN 6.8 g/dL (6.3-8.2)
--- NOTE | 2017-07-26 14:16 | RADIOLOGY REPORT (SQ) ---
EXAM DESCRIPTION: U/S OB 14+ TA/1 GEST W/DOPPLER COMPLETED DATE/TIME: 07/26/2017 1:59 pm REASON FOR STUDY: Lack of Movement of baby COMPARISON: None. TECHNIQUE: Static and Dynamic grayscale imaging performed of gravid uterus using transabdominal appr oach. Additional selected color Doppler and spectral images recorded. All stored on PACS. LIMITATIONS: None. FINDINGS: EGA: 18 weeks 6 days CHELSEA: 12/21/2017 EFW: 248 g grams PERCENTILE: Not calculated ISAIAH: Largest pocket 4.4 cm PLACENTA: Anterior grade 1 PRESENTATION: Cephalic. ANATOMY: HEART RATE: 153 beats per minute. FOUR CHAMBER HEART: Visualized. THREE VESSEL CORD: Yes. CORD INSERTION: Visualized. KIDNEYS AND BLADDER: Visualized. Appear normal. STOMACH: Visualized. Appears normal. SPINE: Normal as visualized. BRAIN AND LATERAL VENTRICLES: Visualized. Appear normal. OTHER: No other significant finding. MATERNAL ADNEXA: Maternal ovaries not visualized. CERVICAL LENGTH: 3 cm Closed. OTHER: No other significant finding. IMPRESSION: LIVING INTRAUTERINE . ESTIMATED GESTATIONAL AGE 18 weeks 6 days NO VISUALIZED ANOMALIES. Trimester of : Second trimester - 13 weeks 1 day to 27 weeks 6 days. TECHNICAL DOCUMENTATION: JOB ID: [id number] [employer]- All Rights Reserved
--- NOTE | 2017-07-26 14:41 | ER Document Report ---
ED General - General Chief Complaint: Vaginal Discharge Stated Complaint: DECREASED MOVEMENT Time Seen by Provider: 07/26/17 11:29 TRAVEL OUTSIDE OF THE [place] IN LAST 30 DAYS: No - HPI Patient complains to provider of: Decreased movement, vaginal discharge Notes: 19 week female presents with perceived decreased movement. Patient also describes a small amount of clear fluid leaking from her vagina. No gush. Denies back pain or contractions. - Related Data Allergies/Adverse Reactions: diphenhydramine HCl [From Benadryl] Allergy (Verified 04/06/17 14:59) latex [Latex] Allergy (Verified 04/06/17 14:59) amoxicillin [Amoxicillin] Adverse Reaction (Intermediate, Verified 04/06/17 14: 59) Hallucinations Past Medical History - Social History Smoking Status: Current Every Day Smoker Chew tobacco use (# tins/day): No Frequency of alcohol use: None Drug Abuse: None Family History: Reviewed & Not Pertinent - pt is adopted unsure of family history Patient has suicidal ideation: No Patient has homicidal ideation: No Neurological Medical History: Denies: Hx Seizures Renal/ Medical History: Reports: Hx Kidney Stones. Denies: Hx Peritoneal Dialysis Psychiatric Medical History: Reports: Hx Bipolar Disorder, Hx Depression Past Surgical History: Reports: Hx Orthopedic Surgery - BL knee., Hx Tonsillectomy - and addenoidectomy. Denies: Hx Hysterectomy - Immunizations Hx Diphtheria, Pertussis, Tetanus Vaccination: No Review of Systems - Review of Systems Constitutional: No symptoms reported EENT: No symptoms reported Cardiovascular: No symptoms reported Respiratory: No symptoms reported Gastrointestinal: No symptoms reported Genitourinary: No symptoms reported Female Genitourinary: No symptoms reported Musculoskeletal: No symptoms reported Skin: No symptoms reported Hematologic/Lymphatic: No symptoms reported Neurological/Psychological: No symptoms reported Physical Exam - Vital signs Vitals: Temp Pulse Resp BP Pulse Ox 98.1 F 97 18 109/65 98 07/26/17 11:19 07/26/17 11:19 07/26/17 11:19 07/26/17 11:19 07/26/17 11:19 Interpretation: Normal - General General appearance: Appears well, Alert - HEENT Head: Normocephalic, Atraumatic Eyes: Normal Pupils: PERRL - Respiratory Respiratory status: No respiratory distress Chest status: Nontender Breath sounds: Normal Chest palpation: Normal - Cardiovascular Rhythm: Regular Heart sounds: Normal auscultation Murmur: No - Abdominal Inspection: Normal Distension: No distension Bowel sounds: Normal Tenderness: Nontender Organomegaly: No organomegaly - Back Back: Normal, Nontender - Extremities General upper extremity: Normal inspection, Nontender, Normal color, Normal ROM , Normal temperature General lower extremity: Normal inspection, Nontender, Normal color, Normal ROM , Normal temperature, Normal weight bearing. No: Courtney's sign - Neurological Neuro grossly intact: Yes Cognition: Normal Orientation: AAOx4 Prakash Coma Scale Eye Opening: Spontaneous Prakash Coma Scale Verbal: Oriented [place] Coma Scale Motor: Obeys Commands Prakash Coma Scale Total: 15 Speech: Normal Motor strength normal: LUE, RUE, LLE, RLE Sensory: Normal - Psychological Associated symptoms: Normal affect, Normal mood - Skin Skin Temperature: Warm Skin Moisture: Dry Skin Color: Normal Course - Re-evaluation Re-evalutation: 07/26/17 14:54 Well-appearing female presents with vaginal discharge and perceived decreased movement. Ultrasound shows a normal intrauterine . 07/26/17 15:30 Patient also has amniotic fluid test is negative, discussed case with MANAGER BEVERAGE. Dr. Duval recommends discharge home they will see the patient tomorrow at clinic - Vital Signs Vital signs: Temp Pulse Resp BP Pulse Ox 98.1 F 97 18 109/65 98 07/26/17 11:19 07/26/17 11:19 07/26/17 11:19 07/26/17 11:19 07/26/17 11:19 - Laboratory Result Diagrams: 07/26/17 11:45 07/26/17 11:45 Laboratory results interpreted by me: 07/26/17 07/26/17 07/26/17 11:45 11:45 11:45 WBC 11.7 H Hgb 11.9 L Hct 35.1 L Absolute Neutrophils 9.0 H Sodium 136.6 L Creatinine 0.47 L Beta HCG, Quant 89583.00 H Urine Glucose (UA) 50 H Urine Blood MODERATE H - Diagnostic Test Radiology reviewed: Reports reviewed Discharge - Discharge Clinical Impression: Vaginal discharge Condition: Stable Disposition: HOME, SELF-CARE Instructions: Pelvic Pain in ([facility]) Additional Instructions: See WHAT clinic tomorrow Referrals: CY DUVAL MD [ACTIVE STAFF] - Follow up as needed
[2017-07-26 15:14] LABS: AMNISURE (ROM) NEGATIVE (NEGATIVE)
[2017-07-26 15:43] VITALS: BP 108/59
== END 2017-07-26 15:41 | disposition home or self-care (01) ==
LOC: ER 10:53
DX: O36.8120 Decreased fetal movements, second trimester, not applicable or unspecified (principal); N89.8 Other specified noninflammatory disorders of vagina; O99.332 Smoking (tobacco) complicating pregnancy, second trimester; Z3A.19 19 weeks gestation of pregnancy; Z91.040 Latex allergy status; Z88.0 Allergy status to penicillin; Z87.442 Personal history of urinary calculi
CPT/HCPCS: 36415; 76805; 80053; 81001; 84112; 84702; 85025; 93976; 99284

== ENCOUNTER 2017-08-12 19:39 | Emergency (ER) | payer MEDICAID ==
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
[2017-08-12 20:50] LABS: ABSOLUTE EOSINOPHILS # (AUTO) 0.1 10^3/uL (0.0-0.6); ABSOLUTE LYMPHOCYTES (AUTO) 1.9 10^3/uL (0.5-4.7); ABSOLUTE MONOCYTES (AUTO) 0.9 10^3/uL (0.1-1.4); ABSOLUTE NEUT (AUTO) 12.4 10^3/uL (1.7-8.2); BASOPHILS % (AUTO) 0.3 % (0-2); EOSINOPHILS % (AUTO) 0.7 % (0-6); HEMATOCRIT 35.4 % (36.0-47.0); HEMOGLOBIN 12.3 g/dL (12.0-15.5); LYMPHOCYTES % (AUTO) 12.5 % (13-45); MEAN CORPUSCULAR HEMOGLOBIN 30.6 pg (27.0-33.4); MEAN CORPUSCULAR HGB CONC 34.8 g/dL (32.0-36.0); MEAN CORPUSCULAR VOLUME 88 fl (80-97); MONOCYTES % (AUTO) 5.9 % (3-13); PLATELET COUNT 219 10^3/uL (150-450); RED BLOOD COUNT 4.03 10^6/uL (3.72-5.28); RED CELL DISTRIBUTION WIDTH 13.1 % (11.5-14.0); SEGMENTED NEUTROPHILS % (AUTO) 80.6 % (42-78); TOTAL CELLS COUNTED % (AUTO) 100 %; WHITE BLOOD COUNT 15.4 10^3/uL (4.0-10.5)
[2017-08-12 21:08] LABS: ALANINE AMINOTRANSFERASE 34 U/L (9-52); ALKALINE PHOSPHATASE 64 U/L (38-126); ANION GAP 15 (5-19); ASPARTATE AMINO TRANSFERASE 28 U/L (14-36); BILIRUBIN,DIRECT 0.2 mg/dL (0.0-0.4); BILIRUBIN,TOTAL 0.2 mg/dL (0.2-1.3); BLOOD UREA NITROGEN 7 mg/dL (7-20); CALCIUM 9.3 mg/dL (8.4-10.2); CARBON DIOXIDE 18 mmol/L (22-30); CHLORIDE 104 mmol/L (98-107); GLUCOSE 92 mg/dL (75-110); POTASSIUM 4.1 mmol/L (3.6-5.0); SODIUM 136.7 mmol/L (137-145)
[2017-08-12 21:12] LABS: APPEARANCE,URINE CLOUDY; BILIRUBIN,URINE NEGATIVE (NEGATIVE); COLOR,URINE YELLOW; GLUCOSE, URINE 50 mg/dL (NEGATIVE); KETONES,URINE NEGATIVE (NEGATIVE); LEUKOCYTE ESTERASE,URINE NEGATIVE (NEGATIVE); NITRITE,URINE NEGATIVE (NEGATIVE); PROTEIN,URINE NEGATIVE (NEGATIVE); URINE SPECIFIC GRAVITY 1.013; UROBILINOGEN,URINE NEGATIVE mg/dL (<2.0)
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
[2017-08-12] MEDS ORDERED: ACETAMINOPHEN 325 MG TABLET PO ONE (23:25)
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
[2017-08-12 23:40] VITALS: BP 124/65
== END 2017-08-12 23:40 | disposition home or self-care (01) ==
LOC: ER 19:39
DX: O9A.212 Injury, poisoning and certain other consequences of external causes complicating pregnancy, second trimester (principal); S80.11XA Contusion of right lower leg, initial encounter; S20.221A Contusion of right back wall of thorax, initial encounter; M54.2 Cervicalgia; R10.30 Lower abdominal pain, unspecified; Y04.8XXA Assault by other bodily force, initial encounter; Y92.512 Supermarket, store or market as the place of occurrence of the external cause; O99.332 Smoking (tobacco) complicating pregnancy, second trimester; Z3A.23 23 weeks gestation of pregnancy; Z88.8 Allergy status to other drugs, medicaments and biological substances; Z88.0 Allergy status to penicillin; Z91.040 Latex allergy status
CPT/HCPCS: 99284; 36415; 84702; 85025; 80053; 81001; 76805; 93976; J3490

== ENCOUNTER 2017-09-14 11:35 | Outpatient (CLI) | payer MEDICAID ==
[2017-09-14 12:46] LABS: CALCIUM OXALATE CRYSTALS,URINE MANY /HPF
[2017-09-14 12:48] LABS: APPEARANCE,URINE CLOUDY; BILIRUBIN,URINE MODERATE (NEGATIVE); COLOR,URINE DARK YELLOW; GLUCOSE, URINE NEGATIVE (NEGATIVE); KETONES,URINE 25 mg/dL (NEGATIVE); LEUKOCYTE ESTERASE,URINE NEGATIVE (NEGATIVE); NITRITE,URINE NEGATIVE (NEGATIVE); PROTEIN,URINE 100 mg/dL (NEGATIVE); URINE SPECIFIC GRAVITY 1.036
[2017-09-14 13:28] LABS: URINE AMPHETAMINES SCREEN NEGATIVE; URINE BARBITURATES SCREEN NEGATIVE; URINE BENZODIAZEPINES SCREEN NEGATIVE; URINE COCAINE SCREEN NEGATIVE; URINE METHADONE SCREEN NEGATIVE; URINE PHENCYCLIDINE SCREEN NEGATIVE
[2017-09-14 13:34] LABS: URINE MARIJUANA (THC) SCREEN UNCONFIRMED POSITIVE
== END 2017-09-14 13:43 | disposition home or self-care (01) ==
LOC: LC 11:35
PROVIDERS: ATTEND Student in an Organized Health Care Education/Training Program
PROC: 4A1HXCZ Monitoring of Products of Conception, Cardiac Rate, External Approach (ICD-10-PCS; principal; 2017-09-14)
DX: O99.332 Smoking (tobacco) complicating pregnancy, second trimester (principal); Z3A.26 26 weeks gestation of pregnancy
CPT/HCPCS: 59899; 81001; 80307; G0480 ×2

== ENCOUNTER 2017-10-22 23:04 | Outpatient (CLI) | payer MEDICAID ==
[2017-10-22 23:42] LABS: AMORPHOUS SEDIMENT,URINE TRACE /HPF; APPEARANCE,URINE CLOUDY; BILIRUBIN,URINE NEGATIVE (NEGATIVE); COLOR,URINE YELLOW; GLUCOSE, URINE NEGATIVE (NEGATIVE); KETONES,URINE NEGATIVE (NEGATIVE); LEUKOCYTE ESTERASE,URINE NEGATIVE (NEGATIVE); NITRITE,URINE NEGATIVE (NEGATIVE); PROTEIN,URINE NEGATIVE (NEGATIVE); URINE SPECIFIC GRAVITY 1.013; UROBILINOGEN,URINE NEGATIVE mg/dL (<2.0)
[2017-10-22 23:46] LABS: AMNISURE (ROM) NEGATIVE (NEGATIVE)
[2017-10-22] MEDS ORDERED: RINGERS SOLUTION,LACTATED 1,000 ML IV PRN (23:59)
[2017-10-22] MEDS ORDERED: RINGERS SOLUTION,LACTATED 1,000 ML IV ONE (23:59)
[2017-10-23] MEDS ORDERED: TERBUTALINE SULFATE INJ/PF 1 MG/1 ML SDV SUBCUT ONE (00:33)
[2017-10-23] MEDS ORDERED: TERBUTALINE SULFATE INJ/PF 1 MG/1 ML SDV ONE (00:40)
--- NOTE | 2017-10-23 01:21 | RADIOLOGY REPORT (SQ) ---
EXAM DESCRIPTION: U/S OB LIMITED CLINICAL HISTORY: 27 years Female, cervical length, presentation, fluid COMPARISON: 08/12/2017 TECHNIQUE: Limited second/third trimester obstetrical ultrasound to evaluate for cervical length, ISAIAH, and presentation. FINDINGS: There is a single intrauterine . ISAIAH: 11.7 cm heart rate: 149 beats for minute. Placenta: Anterior. Presentation: Variable, and initially cephalic and then transverse. Cervical length: 3.2 cm and closed. IMPRESSION: 1. Single live intrauterine with heart rate of 149 bpm. 2. Cervical length is 3.2 cm and closed. 3. ISAIAH within normal limits.
[2017-10-23 01:46] LABS: URINE AMPHETAMINES SCREEN NEGATIVE; URINE BARBITURATES SCREEN NEGATIVE; URINE BENZODIAZEPINES SCREEN NEGATIVE; URINE COCAINE SCREEN NEGATIVE; URINE METHADONE SCREEN NEGATIVE; URINE PHENCYCLIDINE SCREEN NEGATIVE
[2017-10-23 01:52] LABS: URINE MARIJUANA (THC) SCREEN UNCONFIRMED POSITIVE
--- NOTE | 2017-10-23 02:15 | Non Stress Test Report ---
Non Stress Test Datetime Report Generated by CPN: 10/23/2017 02:14 DEMOGRAPHIC EGA NST: 32.0 INDICATION Indication for Study: Ordered by Provider MONITORING Monitor Explained: Monitor Explained; Test Explained; Patient Verbalized Understanding Time on Monitor: 10/23/2017 00:53 Time off Monitor: 10/23/2017 01:42 NST Duration: 49 NST INTERVENTIONS NST Interventions: PO Hydration; IV Fluids; Reposition Patient Physician Notified NST: [place]omón BABY A: [id number] BABY A Movement : Present Contraction Frequency : 1.5-4 FHR Baseline : 130 Accelerations : 15X15 Decelerations : None Variability : Moderate 6-25bpm NST Review: Meets Criteria for Reactive NST NST Review and Verified By : JERRY Fernandez Results: Reactive NST REPORT Report Trigger: Send Report
== END 2017-10-23 02:12 | disposition home or self-care (01) ==
LOC: LC 23:04
PROVIDERS: ATTEND Student in an Organized Health Care Education/Training Program
PROC: 4A1HXCZ Monitoring of Products of Conception, Cardiac Rate, External Approach (ICD-10-PCS; principal; 2017-10-22)
DX: Z34.93 Encounter for supervision of normal pregnancy, unspecified, third trimester (principal); Z36.89 Encounter for other specified antenatal screening
CPT/HCPCS: 59025; 84112; 81001; 80307; 76815; Q0114; J3105

== ENCOUNTER 2017-12-15 05:45 | Inpatient (IN) | payer MEDICAID ==
[2017-12-15] MEDS ORDERED: RINGERS SOLUTION,LACTATED 300 ML IV ONE (05:53)
[2017-12-15] MEDS ORDERED: RINGERS SOLUTION,LACTATED 1,000 ML IV PRN (05:53)
[2017-12-15] MEDS ORDERED: OXYTOCIN/NORMAL SALINE 20 UNIT/1,000 ML RTUINJ IV PRN ×2 (05:53→16:26)
[2017-12-15 06:23] LABS: ABSOLUTE BASOPHILS # (AUTO) 0.1 10^3/uL (0.0-0.2); ABSOLUTE EOSINOPHILS # (AUTO) 0.1 10^3/uL (0.0-0.6); ABSOLUTE LYMPHOCYTES (AUTO) 3.1 10^3/uL (0.5-4.7); ABSOLUTE MONOCYTES (AUTO) 0.9 10^3/uL (0.1-1.4); ABSOLUTE NEUT (AUTO) 7.1 10^3/uL (1.7-8.2); BASOPHILS % (AUTO) 0.5 % (0-2); EOSINOPHILS % (AUTO) 1.1 % (0-6); HEMOGLOBIN 10.7 g/dL (12.0-15.5); LYMPHOCYTES % (AUTO) 27.4 % (13-45); MEAN CORPUSCULAR HEMOGLOBIN 29.3 pg (27.0-33.4); MEAN CORPUSCULAR HGB CONC 34.7 g/dL (32.0-36.0); MEAN CORPUSCULAR VOLUME 84 fl (80-97); MONOCYTES % (AUTO) 8.3 % (3-13); PLATELET COUNT 214 10^3/uL (150-450); RED BLOOD COUNT 3.67 10^6/uL (3.72-5.28); RED CELL DISTRIBUTION WIDTH 13.5 % (11.5-14.0); SEGMENTED NEUTROPHILS % (AUTO) 62.7 % (42-78); TOTAL CELLS COUNTED % (AUTO) 100 %; WHITE BLOOD COUNT 11.3 10^3/uL (4.0-10.5)
[2017-12-15 06:24] LABS: APPEARANCE,URINE SLIGHTLY-CLOUDY; BILIRUBIN,URINE NEGATIVE (NEGATIVE); COLOR,URINE YELLOW; GLUCOSE, URINE NEGATIVE (NEGATIVE); KETONES,URINE NEGATIVE (NEGATIVE); LEUKOCYTE ESTERASE,URINE NEGATIVE (NEGATIVE); NITRITE,URINE NEGATIVE (NEGATIVE); PROTEIN,URINE NEGATIVE (NEGATIVE); URINE SPECIFIC GRAVITY 1.005; UROBILINOGEN,URINE NEGATIVE mg/dL (<2.0)
[2017-12-15 06:39] LABS: URINE AMPHETAMINES SCREEN NEGATIVE; URINE BARBITURATES SCREEN NEGATIVE; URINE BENZODIAZEPINES SCREEN NEGATIVE; URINE COCAINE SCREEN NEGATIVE; URINE MARIJUANA (THC) SCREEN NEGATIVE; URINE METHADONE SCREEN NEGATIVE; URINE PHENCYCLIDINE SCREEN NEGATIVE
[2017-12-15] MEDS ORDERED: MISOPROSTOL 0.2 MG TABLET ONE (07:33)
[2017-12-15] MEDS ORDERED: OXYTOCIN/NORMAL SALINE 0 UNIT/0 ML RTUINJ ONE (07:33)
[2017-12-15] MEDS ORDERED: LIDOCAINE 1% INJ-PF (10 MG/ML) 30 ML SDV ONE (07:33)
[2017-12-15] MEDS ORDERED: MAG HYDROX/AL HYDROX/SIMETH SUSP 30 ML UDCUP ONE (07:36)
[2017-12-15] MEDS ORDERED: OXYTOCIN/NORMAL SALINE 20 UNIT/1,000 ML RTUINJ ONE (08:46)
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
--- NOTE | 2017-12-15 12:46 | L&D Progress Notes ---
PROGRESS NOTES Datetime Report Generated by CPN: 12/15/2017 12:46 PROGRESS NOTE Impression: Normal Progression of Labor Procedures: Artificial ROM Plan: Induction Informed Consent Obtained: Vaginal Delivery; Induction of Labor Vital Signs : Reviewed; Within Normal Limits Comment: progressing normally. AROM for clear fluid. pt requesting epidural. P:continue pitocin IOL, anticipate VAGINAL EXAM Dilatation: 5 Effacement: 70 Station: -2 Contractions: q2-4 mins FETUS A FHR - Baseline: 135 Variability: Moderate 6-25bpm Accelerations: 15X15 Decelerations: None FHR Category: Category I : 39+4 Estimated Weight (gm): 3300 Presentation: Vertex SIGNATURE SIGNATURE: ,[id number];[id number];[id number] SIGNATURE: ,[id number];[id number] SIGNATURE: [id number] Assignment: Ruth Long MD Signature: with User ID: [email or web address] : with User ID: [email or web address]
[2017-12-15] MEDS ORDERED: FENTANYL CITRATE INJ/PF 100 MCG/2 ML AMPUL IV ONE (12:55)
[2017-12-15] MEDS ORDERED: FENTANYL/BUPIVACAINE/NS/PF 300 MCG/150 ML RTUINJ EPI ONE (12:55)
[2017-12-15] MEDS ORDERED: FENTANYL CITRATE INJ/PF 100 MCG/2 ML AMPUL ONE (12:55)
[2017-12-15] MEDS ORDERED: EPHEDRINE SULFATE INJ 50 MG/1 ML AMPULE ONE (12:55)
[2017-12-15] MEDS ORDERED: BUPIVACAINE HCL 0.25 % INJ/PF (2.5 MG/1 ML) 30 ML VIAL ONE ×2 (12:56→15:49)
[2017-12-15] MEDS ORDERED: PROMETHAZINE HCL 25 MG TABLET PO PRN (16:26)
[2017-12-15] MEDS ORDERED: PROMETHAZINE HCL INJ 25 MG/1 ML VIAL IV PRN (16:26)
[2017-12-15] MEDS ORDERED: PSEUDOEPHEDRINE HCL 30 MG TABLET PO PRN (16:26)
[2017-12-15] MEDS ORDERED: MEASLES,MUMPS&RUBELLA VACC/PF 0.5 ML VIAL SUBCUT PRN (16:26)
[2017-12-15] MEDS ORDERED: MAGNESIUM HYDROXIDE SUSP 30 ML UDCUP PO PRN (16:26)
[2017-12-15] MEDS ORDERED: DIPH/PERTUSS(ACELL)/TETANUS VAC/PF 0.5 ML SYR (>=10YO) IM PRN (16:26)
[2017-12-15] MEDS ORDERED: NA PHOS,M-B/NA PHOS,DI-BA (ADULT) 133 ML ENEMA PR PRN (16:26)
[2017-12-15] MEDS ORDERED: ACETAMINOPHEN 650 MG SUPP.RECT PR PRN (16:26)
[2017-12-15] MEDS ORDERED: DIBUCAINE 1% OINTMENT 28 GM TP PRN (16:26)
[2017-12-15] MEDS ORDERED: ACETAMINOPHEN WITH CODEINE #3 TABLET PO PRN (16:26)
[2017-12-15] MEDS ORDERED: ZOLPIDEM TARTRATE 5 MG TABLET PO PRN (16:26)
[2017-12-15] MEDS ORDERED: PROMETHAZINE HCL 25 MG SUPP.RECT PR PRN (16:26)
[2017-12-15] MEDS ORDERED: GLYCERIN/WITCH HAZEL LEAF 1 EACH MED..PAD TP PRN (16:26)
[2017-12-15] MEDS ORDERED: BENZOCAINE/MENTHOL AEROSOL SPRAY 56 ML TOP PRN (16:26)
[2017-12-15] MEDS ORDERED: IBUPROFEN 800 MG TABLET ONE (17:29)
[2017-12-15] MEDS ORDERED: ACETAMINOPHEN WITH CODEINE #3 TABLET ONE (17:29)
[2017-12-15] MEDS: ACETAMINOPHEN WITH CODEINE #3 TABLET PO PRN ×2 (17:32→21:56)
[2017-12-15] MEDS: IBUPROFEN 800 MG TABLET PO SCH (17:34)
--- NOTE | 2017-12-15 18:24 | Delivery Summary ---
Del Sum A-C Datetime Report Generated by CPN: 12/15/2017 18:24 DELIVERY PERSONNEL DELIVERY PERSONNEL: [id number] Delivery Doctor:: Ligia Germain CNM Labor and Delivery Nurse:: Haris Haile RNdebubblizer Nurse:: Daina Sanders RN Nursery Nurse:: Magdalene Jones RN Nursery Nurse:: JERRY Smith Tech/COMPUTER GRAPHICS ILLUSTRATOR: Trudi Dyer, ST MATERNAL INFORMATION Delivery Anesthesia: Epidural Medications After Delivery: Pitocin Drip 20 Units/1000ml NSS Maternal Complications: None LABOR SUMMARY EDC: 12/18/2017 00:00 No. Babies in Womb: 1 Attempted: No Labor Anesthesia: Epidural LABOR INFORMATION Reason for Induction: Other Reason for Induction- Other: inconsistent care, elective induction per [place] Germain CNM Onset of Labor: 12/15/2017 11:00 Complete Dilatation: 12/15/2017 15:48 Other Ripening Agents: n/a Oxytocin: Induction Group B Beta Strep: Negative Antibiotics # of Doses: 0 Antibiotics Time of Last Dose: N/A Name of Antibiotic Given: N/A Steroids Given: None Reason Steroids Not Administered: Not Applicable Other Reason Not Administered: N/A MEMBRANES Membranes Rupture Method: Artificial Rupture of Membranes: 12/15/2017 12:35 Length of Rupture (hr): 3.52 Amniotic Fluid Color: Clear Amniotic Fluid Amount: Moderate Amniotic Fluid Odor: Normal STAGES OF LABOR Stage 1 hr: 4 Stage 1 min: 48 Stage 2 hr: 0 Stage 2 min: 18 Stage 3 hr: 0 Stage 3 min: 5 Total Time in Labor hr: 5 Total Time in Labor min: 11 VAGINAL DELIVERY Episiotomy: None Laceration #1: None Laceration Extension #1: N/A Laceration Repair: Not Applicable Laceration Repair Note: DAXA VIABLE MALE INFANT WITH SPONTANEOUS CRY. RIGHT NUCHAL ARM-SWEPT ACROSS BODY FOR DELIVERY OF POSTERIOR ARM; ANT ARM AND BODY THEN DELIVERED EASILY. CORD DOUBLE CLAMPED AND CUT. SPONTANEOUS PLACENTA WITH 3VC. NO LACERATIONS. MOTHER AND INFANT STABLE IN L_D#5 BABY A INFORMATION Infant Delivery Date/Time: 12/15/2017 16:06 Method of Delivery: Vaginal Born in Route : No : N/A Forceps: N/A Vacuum Extraction: N/A Shoulder Dystocia : No PRESENTATION/POSITION BABY A Presentation: Cephalic Cephalic Presentation: Vertex Vertex Position: Right Occipital Anterior Breech Presentation: N/A PLACENTA INFORMATION BABY A Placenta Delivery Time : 12/15/2017 16:11 Placenta Method of Delivery: Spontaneous Placenta Status: Delivered SCORES BABY A Heart Rate 1 min: >100 bpm Resp Effort 1 min: Good Cry Reflex Irritability 1 min: Cough or Sneeze or Pulls Away Muscle Tone 1 min: Some Flexion of Extremities Color 1 min: Body Kirwin, Extremities Blue Resuscitation Effort 1 min: Tactile Stimulation SCORE 1 MIN: 8 Heart Rate 5 min: >100 bpm Resp Effort 5 min: Good Cry Reflex Irritability 5 min: Cough or Sneeze or Pulls Away Muscle Tone 5 min: Active Motion Color 5 min: Body Kirwin, Extremities Blue Resuscitation Effort 5 min: Tactile Stimulation SCORE 5 MIN: 9 INFORMATION BABY A Gestational Age at Delivery: 39.4 Gestational Status: Full Term- 39- 40.6 Weeks Outcome : Liveborn Infant Condition : Stable Infant Sex: Male IDENTIFICATION BABY A Infant Verification Date/Time: 12/15/2017 16:32 ID Band Number: [id number] Mother's Name Verified: Yes Infant RN Verifying Infant: K Karen RN/ C Vitorerman, RN WEIGHT/LENGTH BABY A Infant Birthweight (gm): 3380 Infant Weight (lb): 7 Weight (oz): 7 Length (in): 20.00 Infant Length (cm): 50.80 CORD INFORMATION BABY A No. Cord Vessels: 3 Nuchal Cord : N/A Nuchal Cord- Other: HAND Cord Blood Taken: Yes-For Eval (Mom's Blood Type - or O+) Suction: None ASSESSMENT BABY A Infant Complications: None Physical Findings at Delivery: Bruising Infant Respirations: Appears Normal Skin to Skin: Yes Skin to Skin Time (min): 60 Facing Slitter/ALS Called : No Care By: Terrence Jones RN/ Kati Arita RN Transferred To: Remains with Mother BABY B INFORMATION : N/A SIGNATURES Assignment: Ruth Long MD Signature: with User ID: [email or web address] : with User ID: [email or web address] : I was personally available for consultation and serving as supervising physician for the MLP.
[2017-12-15] MEDS: FAMOTIDINE 20 MG TABLET PO SCH (21:56)
[2017-12-16] MEDS: IBUPROFEN 800 MG TABLET PO SCH ×3 (06:02→21:48)
[2017-12-16 07:04] LABS: HEMATOCRIT 27.7 % (36.0-47.0); HEMOGLOBIN 9.4 g/dL (12.0-15.5); MEAN CORPUSCULAR HGB CONC 33.8 g/dL (32.0-36.0); MEAN CORPUSCULAR VOLUME 86 fl (80-97); PLATELET COUNT 177 10^3/uL (150-450); RED BLOOD COUNT 3.23 10^6/uL (3.72-5.28); RED CELL DISTRIBUTION WIDTH 13.5 % (11.5-14.0); WHITE BLOOD COUNT 14.3 10^3/uL (4.0-10.5)
[2017-12-16] MEDS: ACETAMINOPHEN WITH CODEINE #3 TABLET PO PRN (07:12)
[2017-12-16] MEDS: DOCUSATE SODIUM 100 MG CAPSULE PO SCH ×3 (07:59→17:07)
[2017-12-16] MEDS: FERROUS SULFATE 325 MG TABLET PO SCH ×3 (07:59→17:07)
--- NOTE | 2017-12-16 08:41 | PDOC PROGRESS REPORT ---
Subjective-OB Progress Note for:: 12/16/17 Subjective: reports bleeding slowing, tolerating diet, pain requiring more than ibuprofen and codeine is causing stomach ache. wants to go back on bipolar meds-reports taking latuda, neurontin and zoloft. Physical Exam (OB) Vital Signs: Temp Pulse Resp BP Pulse Ox 98.4 F 77 16 123/62 99 12/15/17 22:49 12/15/17 22:49 12/15/17 22:49 12/15/17 22:49 12/15/17 22:49 Intake & Output 12/15/17 12/16/17 12/17/17 06:59 06:59 06:59 Intake Total 300 Output Total 300 Balance 0 Weight 84.4 kg - Abdomen Description: Soft, Round Hernia Present: No Fundal Description: Firm Fundal Height: u/u - u/2 - Abdominal Distension: No distension Tenderness: Nontender - Extremities Lower extremities: Courtney's sign - neg Calf: Normal, Nontender Objective-Diagnostic Laboratory: 12/16/17 06:26 12/16/17 12/16/17 06:26 06:26 WBC 14.3 H RBC 3.23 L Hgb 9.4 L Hct 27.7 L MCV 86 MCH 29.0 MCHC 33.8 RDW 13.5 Plt Count 177 Blood Type A NEGATIVE Assessment and Plan(PN) - Assessment and Plan (1) Normal vaginal delivery Is this a current diagnosis for this admission?: Yes (2) Encounter for planned induction of labor Is this a current diagnosis for this admission?: Yes (3) Bipolar disorder Qualifiers: Active/Remission status: currently active Is this a current diagnosis for this admission?: Yes - Time Spent with Patient Time with patient: Less than 15 minutes Medications reviewed and adjusted accordingly: Yes - Disposition Anticipated Discharge: Home Within: within 24 hours
[2017-12-16] MEDS: SENNOSIDES/DOCUSATE 8.6-50 MG 1 EACH TABLET PO SCH (09:32)
[2017-12-16] MEDS: FAMOTIDINE 20 MG TABLET PO SCH ×2 (09:32→21:47)
[2017-12-16] MEDS: PRENATAL VITAMIN W DHA CAPSULE PO SCH (09:32)
[2017-12-16] MEDS: SERTRALINE HCL 50 MG TABLET PO SCH (09:32)
[2017-12-16] MEDS ORDERED: GABAPENTIN 100 MG CAPSULE PO SCH (10:00)
[2017-12-16] MEDS: LURASIDONE HCL 40 MG TABLET PO SCH (10:14)
[2017-12-16] MEDS: HYDROCODONE/ACETAMINOPHEN 5-325 MG TABLET PO PRN ×2 (11:26→19:28)
[2017-12-16] MEDS ORDERED: GABAPENTIN 400 MG CAPSULE PO SCH ×2 (20:00→22:00)
[2017-12-16 20:34] VITALS: BP 121/65
[2017-12-17] MEDS: HYDROCODONE/ACETAMINOPHEN 5-325 MG TABLET PO PRN ×3 (01:47→11:43)
[2017-12-17] MEDS: IBUPROFEN 800 MG TABLET PO SCH (06:09)
--- NOTE | 2017-12-17 08:31 | PDOC DISCHARGE SUMMARY ---
Final Diagnosis Discharge Date: 12/17/17 - Final Diagnosis (1) Normal vaginal delivery Is this a current diagnosis for this admission?: Yes (2) Encounter for planned induction of labor Is this a current diagnosis for this admission?: Yes (3) Bipolar disorder Is this a current diagnosis for this admission?: Yes Discharge Data - Discharge Medication Prescriptions: Gabapentin [Neurontin 400 mg Capsule] 400 mg PO QHS #10 capsule Ibuprofen [Motrin 800 mg Tablet] 800 mg PO Q8 #60 tablet Lurasidone HCl [Latuda 40 mg Tablet] 20 mg PO DAILY #10 tablet Sertraline HCl [Zoloft 50 mg Tablet] 100 mg PO DAILY #10 tablet Home Medications: Vit,Calc76/Iron/Folic [Prenatabs Rx Tablet] 1 tab PO DAILY 09/14/17 Acetaminophen [Tylenol 650 mg Supp] 650 mg PO Q6HP PRN supp.rect 12/17/17 Ferrous Sulfate [Feosol 325 mg Tablet] 325 mg PO BID tablet 12/17/17 Gabapentin [Neurontin 400 mg Capsule] 400 mg PO QHS #10 capsule 12/17/17 Ibuprofen [Motrin 800 mg Tablet] 800 mg PO Q8 #60 tablet 12/17/17 Lurasidone HCl [Latuda 40 mg Tablet] 20 mg PO DAILY #10 tablet 12/17/17 Sertraline HCl [Zoloft 50 mg Tablet] 100 mg PO DAILY #10 tablet 12/17/17 Reason(s) for Admission: Induction of Labor Procedures: NST Intrapartum Procedure(s): Spontaneous Vaginal Delivery - Diagnosis Test Laboratory: Temp Pulse Resp BP Pulse Ox 98.2 F 63 17 121/65 99 12/16/17 20:00 12/16/17 20:00 12/16/17 20:00 12/16/17 20:00 12/16/17 20:00 12/15/17 12/15/17 12/16/17 05:42 06:08 06:26 RBC 3.67 L 3.23 L Hgb 10.7 L 9.4 L Hct 31.0 L 27.7 L Urine Opiates Screen NEGATIVE - Discharge information/Instructions Discharge Activity: Balance Activity w/Rest, Pelvic Rest Discharge Diet: Regular Disposition: HOME, SELF-CARE Follow up with: [facility] in: 4, Weeks
[2017-12-17] MEDS: SERTRALINE HCL 50 MG TABLET PO SCH (09:13)
[2017-12-17] MEDS: DOCUSATE SODIUM 100 MG CAPSULE PO SCH (09:13)
[2017-12-17] MEDS: SENNOSIDES/DOCUSATE 8.6-50 MG 1 EACH TABLET PO SCH (09:13)
[2017-12-17] MEDS: FAMOTIDINE 20 MG TABLET PO SCH (09:14)
[2017-12-17] MEDS: LURASIDONE HCL 40 MG TABLET PO SCH (09:14)
[2017-12-17] MEDS: FERROUS SULFATE 325 MG TABLET PO SCH (09:14)
[2017-12-17] MEDS: PRENATAL VITAMIN W DHA CAPSULE PO SCH (09:14)
== END 2017-12-17 12:18 | disposition home or self-care (01) | DRG 775 ==
LOC: LR 05:45 → 2S 18:45
PROVIDERS: ADMIT Obstetrics & Gynecology Gynecology; ATTEND Obstetrics & Gynecology Gynecology
PROC: 10E0XZZ Delivery of Products of Conception, External Approach (ICD-10-PCS; principal; 2017-12-15)
PROC: 3E033VJ Introduction of Other Hormone into Peripheral Vein, Percutaneous Approach (ICD-10-PCS; 2017-12-15)
PROC: 10907ZC Drainage of Amniotic Fluid, Therapeutic from Products of Conception, Via Natural or Artificial Opening (ICD-10-PCS; 2017-12-15)
PROC: 4A1HXCZ Monitoring of Products of Conception, Cardiac Rate, External Approach (ICD-10-PCS; 2017-12-15)
DX: O99.344 Other mental disorders complicating childbirth (principal); F31.9 Bipolar disorder, unspecified; F43.10 Post-traumatic stress disorder, unspecified; F41.9 Anxiety disorder, unspecified; O99.334 Smoking (tobacco) complicating childbirth; F17.210 Nicotine dependence, cigarettes, uncomplicated; Z91.040 Latex allergy status; Z88.8 Allergy status to other drugs, medicaments and biological substances; Z91.018 Allergy to other foods; Z3A.39 39 weeks gestation of pregnancy; Z37.0 Single live birth
CPT/HCPCS: 36415; 80307; 81005; 85025; 85027; 85461; 86592; 86850; 86900; 86901; 94760; J2590; J2790; J3010; J3490

== ENCOUNTER 2018-12-23 16:49 | Outpatient (CLI) | payer MEDICAID ==
[2018-12-23 17:31] LABS: APPEARANCE,URINE HAZY; BILIRUBIN,URINE NEGATIVE (NEGATIVE); COLOR,URINE STRAW; GLUCOSE, URINE NEGATIVE (NEGATIVE); KETONES,URINE NEGATIVE (NEGATIVE); URINE SPECIFIC GRAVITY 1.008
[2018-12-23 17:32] LABS: LEUKOCYTE ESTERASE,URINE TRACE (NEGATIVE); NITRITE,URINE NEGATIVE (NEGATIVE); PROTEIN,URINE NEGATIVE (NEGATIVE); UROBILINOGEN,URINE NEGATIVE mg/dL (<2.0)
[2018-12-23 17:55] LABS: URINE AMPHETAMINES SCREEN NEGATIVE; URINE BARBITURATES SCREEN NEGATIVE; URINE BENZODIAZEPINES SCREEN NEGATIVE; URINE METHADONE SCREEN NEGATIVE; URINE PHENCYCLIDINE SCREEN NEGATIVE
[2018-12-23 18:04] LABS: URINE COCAINE SCREEN UNCONFIRMED POSITIVE; URINE MARIJUANA (THC) SCREEN UNCONFIRMED POSITIVE
--- NOTE | 2018-12-23 18:13 | Non Stress Test Report ---
Non Stress Test Datetime Report Generated by CPN: 12/23/2018 18:13 DEMOGRAPHIC EGA NST: 37.0 INDICATION Indication for Study: Ordered by Provider MONITORING Monitor Explained: Monitor Explained; Test Explained; Patient Verbalized Understanding Time on Monitor: 12/23/2018 17:13 Time off Monitor: 12/23/2018 17:55 NST Duration: 42 NST INTERVENTIONS NST Interventions: None Physician Notified NST: Dr. Zay BABY A: [id number] BABY A Movement : Present Contraction Frequency : irregular FHR Baseline : 135 Accelerations : 15X15 Decelerations : None Variability : Moderate 6-25bpm NST Review: Meets Criteria for Reactive NST NST Review and Verified By : Ivone Stuart RN NST Results: Reactive NST REPORT Report Trigger: Send Report
== END 2018-12-23 18:02 | disposition home or self-care (01) ==
LOC: LC 16:49
PROVIDERS: ATTEND Obstetrics & Gynecology
PROC: 4A1HXCZ Monitoring of Products of Conception, Cardiac Rate, External Approach (ICD-10-PCS; principal; 2018-12-23)
DX: O47.1 False labor at or after 37 completed weeks of gestation (principal); Z3A.37 37 weeks gestation of pregnancy
CPT/HCPCS: 59025; 36415; 81005; 80307; 80353; G0480

== ENCOUNTER 2019-01-08 06:49 | Inpatient (IN) | payer MEDICAID ==
[2019-01-08] MEDS ORDERED: RINGERS SOLUTION,LACTATED 1,000 ML IV PRN (07:02)
[2019-01-08] MEDS ORDERED: OXYTOCIN/NORMAL SALINE 20 UNIT/1,000 ML RTUINJ IV PRN ×2 (07:04→14:51)
[2019-01-08 07:18] LABS: APPEARANCE,URINE CLOUDY; BILIRUBIN,URINE NEGATIVE (NEGATIVE); COLOR,URINE YELLOW; GLUCOSE, URINE 150 mg/dL (NEGATIVE); KETONES,URINE NEGATIVE (NEGATIVE); LEUKOCYTE ESTERASE,URINE TRACE (NEGATIVE); NITRITE,URINE NEGATIVE (NEGATIVE); PROTEIN,URINE NEGATIVE (NEGATIVE); UROBILINOGEN,URINE NEGATIVE mg/dL (<2.0)
[2019-01-08] MEDS ORDERED: VANCOMYCIN HCL 1,000 MG in DEXTROSE 5%-WATER 250 ML IV SCH (07:30)
[2019-01-08 07:36] LABS: URINE AMPHETAMINES SCREEN NEGATIVE; URINE BARBITURATES SCREEN NEGATIVE; URINE BENZODIAZEPINES SCREEN NEGATIVE; URINE COCAINE SCREEN NEGATIVE; URINE MARIJUANA (THC) SCREEN NEGATIVE; URINE METHADONE SCREEN NEGATIVE; URINE PHENCYCLIDINE SCREEN NEGATIVE
[2019-01-08] MEDS ORDERED: ONDANSETRON HCL INJ/PF 4 MG/2 ML SDV IV PRN (07:39)
[2019-01-08] MEDS ORDERED: OXYTOCIN 10 UNIT/ML VIAL ONE (07:42)
[2019-01-08] MEDS ORDERED: MISOPROSTOL 0.2 MG TABLET ONE (07:42)
[2019-01-08] MEDS ORDERED: OXYTOCIN/NORMAL SALINE 20 UNIT/1,000 ML RTUINJ ONE (07:42)
[2019-01-08] MEDS ORDERED: LIDOCAINE 1% INJ-PF (10 MG/ML) 30 ML SDV ONE (07:42)
[2019-01-08] MEDS ORDERED: VANCOMYCIN HCL INJ 1000 MG VIAL ONE (07:42)
[2019-01-08] MEDS ORDERED: ONDANSETRON HCL INJ/PF 4 MG/2 ML SDV ONE (07:43)
[2019-01-08] MEDS ORDERED: VANCOMYCIN HCL INJ 1000 MG VIAL IV SCH (08:00)
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
[2019-01-08 08:09] LABS: ABSOLUTE EOSINOPHILS # (AUTO) 0.1 10^3/uL (0.0-0.6); ABSOLUTE LYMPHOCYTES (AUTO) 2.1 10^3/uL (0.5-4.7); ABSOLUTE MONOCYTES (AUTO) 0.9 10^3/uL (0.1-1.4); ABSOLUTE NEUT (AUTO) 8.6 10^3/uL (1.7-8.2); BASOPHILS % (AUTO) 0.2 % (0-2); EOSINOPHILS % (AUTO) 1.2 % (0-6); HEMATOCRIT 32.3 % (36.0-47.0); HEMOGLOBIN 10.6 g/dL (12.0-15.5); LYMPHOCYTES % (AUTO) 17.6 % (13-45); MEAN CORPUSCULAR HEMOGLOBIN 26.2 pg (27.0-33.4); MEAN CORPUSCULAR HGB CONC 32.8 g/dL (32.0-36.0); MEAN CORPUSCULAR VOLUME 80 fl (80-97); MONOCYTES % (AUTO) 7.5 % (3-13); PLATELET COUNT 239 10^3/uL (150-450); RED BLOOD COUNT 4.05 10^6/uL (3.72-5.28); RED CELL DISTRIBUTION WIDTH 14.8 % (11.5-14.0); SEGMENTED NEUTROPHILS % (AUTO) 73.5 % (42-78); TOTAL CELLS COUNTED % (AUTO) 100 %; WHITE BLOOD COUNT 11.7 10^3/uL (4.0-10.5)
[2019-01-08] MEDS ORDERED: PROMETHAZINE HCL INJ 25 MG/1 ML VIAL ONE (10:29)
[2019-01-08] MEDS ORDERED: NALBUPHINE HCL INJ 10 MG/1 ML AMPULE ONE (10:29)
[2019-01-08] MEDS ORDERED: NALBUPHINE HCL INJ 10 MG/1 ML AMPULE INJ ONE ×2 (10:30→10:31)
[2019-01-08] MEDS ORDERED: PROMETHAZINE HCL INJ 25 MG/1 ML VIAL IV ONE (10:30)
[2019-01-08] MEDS ORDERED: EPHEDRINE SULFATE INJ 50 MG/1 ML AMPULE ONE (11:21)
[2019-01-08] MEDS ORDERED: BUPIVACAINE HCL 0.25 % INJ/PF (2.5 MG/1 ML) 30 ML VIAL ONE (11:21)
[2019-01-08] MEDS ORDERED: FENTANYL/BUPIVACAINE/NS/PF 300 MCG/150 ML RTUINJ EPI ONE (11:21)
[2019-01-08] MEDS ORDERED: DIBUCAINE 1% OINTMENT 56 GM TP PRN (14:51)
[2019-01-08] MEDS ORDERED: BENZOCAINE/MENTHOL AEROSOL SPRAY 56 ML TOP PRN (14:51)
[2019-01-08] MEDS ORDERED: MEASLES,MUMPS&RUBELLA VACC/PF 0.5 ML VIAL SUBCUT PRN (14:51)
[2019-01-08] MEDS ORDERED: DIPH/PERTUSS(ACELL)/TETANUS VAC/PF 0.5 ML SYR (>=10YO) IM PRN (14:51)
[2019-01-08] MEDS ORDERED: ZOLPIDEM TARTRATE 5 MG TABLET PO PRN (14:51)
--- NOTE | 2019-01-08 15:16 | Warning Signs in Babies ---
VOD Warning Signs Datetime Report Generated by [facility]: 01/08/2019 15:16 VOD#608 -Warning Signs in Babies: Viewed with Parent(s)/Family (01/08/2019 14:55:Debby Long RN)
[2019-01-08] MEDS ORDERED: ACETAMINOPHEN WITH CODEINE #3 TABLET ONE (15:34)
[2019-01-08] MEDS: ACETAMINOPHEN WITH CODEINE #3 TABLET PO PRN ×2 (15:36→20:17)
[2019-01-08] MEDS ORDERED: KETOROLAC TROMETHAMINE INJ/PF 30 MG/1 ML SDV IV ONE (16:44)
[2019-01-08] MEDS ORDERED: KETOROLAC TROMETHAMINE INJ/PF 30 MG/1 ML SDV ONE (17:00)
[2019-01-08] MEDS: DOCUSATE SODIUM 100 MG CAPSULE PO SCH (17:08)
[2019-01-08] MEDS: FERROUS SULFATE 325 MG TABLET PO SCH (17:08)
[2019-01-08] MEDS ORDERED: IBUPROFEN 800 MG TABLET PO SCH (22:00)
[2019-01-09] MEDS: IBUPROFEN 800 MG TABLET PO SCH ×3 (02:27→18:47)
[2019-01-09 07:05] LABS: ABSOLUTE BASOPHILS # (AUTO) 0.1 10^3/uL (0.0-0.2); ABSOLUTE EOSINOPHILS # (AUTO) 0.3 10^3/uL (0.0-0.6); ABSOLUTE LYMPHOCYTES (AUTO) 3.8 10^3/uL (0.5-4.7); ABSOLUTE MONOCYTES (AUTO) 1.3 10^3/uL (0.1-1.4); ABSOLUTE NEUT (AUTO) 7.9 10^3/uL (1.7-8.2); BASOPHILS % (AUTO) 0.4 % (0-2); EOSINOPHILS % (AUTO) 2.1 % (0-6); HEMATOCRIT 24.8 % (36.0-47.0); LYMPHOCYTES % (AUTO) 28.4 % (13-45); MEAN CORPUSCULAR HEMOGLOBIN 26.3 pg (27.0-33.4); MEAN CORPUSCULAR HGB CONC 33.1 g/dL (32.0-36.0); MEAN CORPUSCULAR VOLUME 80 fl (80-97); MONOCYTES % (AUTO) 9.9 % (3-13); PLATELET COUNT 193 10^3/uL (150-450); RED BLOOD COUNT 3.12 10^6/uL (3.72-5.28); RED CELL DISTRIBUTION WIDTH 14.5 % (11.5-14.0); SEGMENTED NEUTROPHILS % (AUTO) 59.2 % (42-78); TOTAL CELLS COUNTED % (AUTO) 100 %; WHITE BLOOD COUNT 13.4 10^3/uL (4.0-10.5)
[2019-01-09 07:11] LABS: HEMOGLOBIN 8.2 g/dL (12.0-15.5)
[2019-01-09] MEDS: FERROUS SULFATE 325 MG TABLET PO SCH ×2 (09:26→18:47)
[2019-01-09] MEDS: DOCUSATE SODIUM 100 MG CAPSULE PO SCH ×2 (09:26→18:47)
[2019-01-09] MEDS: SENNOSIDES/DOCUSATE 8.6-50 MG 1 EACH TABLET PO SCH (09:26)
[2019-01-09] MEDS: ACETAMINOPHEN WITH CODEINE #3 TABLET PO PRN ×3 (09:26→23:46)
[2019-01-09] MEDS: PRENATAL VITAMIN W DHA CAPSULE PO SCH (09:26)
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
[2019-01-10] MEDS: IBUPROFEN 800 MG TABLET PO SCH ×2 (01:40→09:10)
[2019-01-10 07:44] VITALS: BP 134/81
[2019-01-10] MEDS: FERROUS SULFATE 325 MG TABLET PO SCH (09:10)
[2019-01-10] MEDS: SENNOSIDES/DOCUSATE 8.6-50 MG 1 EACH TABLET PO SCH (09:11)
[2019-01-10] MEDS: PRENATAL VITAMIN W DHA CAPSULE PO SCH (09:12)
[2019-01-10] MEDS: DOCUSATE SODIUM 100 MG CAPSULE PO SCH (09:12)
--- NOTE | 2019-01-10 10:55 | PDOC PROGRESS REPORT ---
Subjective-OB Progress Note for:: 01/10/19 Subjective: Ready for discharge. Physical Exam (OB) Vital Signs: Temp Pulse Resp BP Pulse Ox 98.0 F 76 18 134/81 H 100 01/10/19 07:27 01/10/19 07:27 01/10/19 07:27 01/10/19 07:27 01/10/19 07:27 - PIH/Pre-Eclampsia DTR's: 1 + Clonus: Negative Headache: Absent Epigastric Pain: No Visual Changes: No - Lochia Lochia Amount: Scant < 10 ml Lochia Color: Rubra/Red - Abdomen Description: Tender Hernia Present: No Bowel Sounds: Normoactive Flatus Presence: Present Stool: No Fundal Description: Firm, Midline Fundal Height: u/u - u/2 Objective-Diagnostic Laboratory: 01/09/19 05:52 01/09/19 05:52 Blood Type A NEGATIVE Assessment and Plan(PN) - Time Spent with Patient Medications reviewed and adjusted accordingly: Yes - Disposition Anticipated Discharge: Home
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
[2019-01-10] MEDS: ACETAMINOPHEN WITH CODEINE #3 TABLET PO PRN ×2 (11:19→16:20)
--- NOTE | 2019-01-14 13:35 | Delivery Summary ---
Del Sum A-C Datetime Report Generated by CPN: 01/14/2019 13:35 DELIVERY PERSONNEL DELIVERY PERSONNEL: [id number] Delivery Doctor:: Indy Gan CNM Labor and Delivery Nurse:: Debby Long RNstamps or coins salesperson Nurse:: Savana Collazo RN Curtain Mender/PUMP TESTER: Vannessa Camacho CNA II Curtain Mender/PUMP TESTER: Rubia Petersen, ST MATERNAL INFORMATION Delivery Anesthesia: Epidural Medications After Delivery: Pitocin Bolus-Please Comment Meds After Delivery Comment: Pitocin 20 units in 1 l NS bolusing per order Delivery QBL: 200 Maternal Complications: None Provider Comments: SVDVM over intact perineum DAXA with loose nuchal cord reduced. Ant and post shoulder del easily followed by body and cord. Infant to mothers abd, vigorous after stimulation, cord clamped x 2 cut per family member. Cord blood collected, placenta via grimm, intact. FF immediately and bleeding stabilized. Mother and stable. LABOR SUMMARY EDC: 01/13/2019 00:00 No. Babies in Womb: 1 Attempted: No Labor Anesthesia: Epidural LABOR INFORMATION Reason for Induction: Other Onset of Labor: 01/08/2019 12:31 Complete Dilatation: 01/08/2019 14:29 Oxytocin: Induction Group B Beta Strep: positive Antibiotics # of Doses: 1 Antibiotics Time of Last Dose: 805 Name of Antibiotic Given: Vancomycin Steroids Given: None Reason Steroids Not Administered: Not Applicable MEMBRANES Membranes Rupture Method: Artificial Rupture of Membranes: 01/08/2019 12:31 Length of Rupture (hr): 2.10 Amniotic Fluid Color: Clear Amniotic Fluid Amount: Small Amniotic Fluid Odor: Normal STAGES OF LABOR Stage 1 hr: 1 Stage 1 min: 58 Stage 2 hr: 0 Stage 2 min: 8 Stage 3 hr: 0 Stage 3 min: 5 Total Time in Labor hr: 2 Total Time in Labor min: 11 VAGINAL DELIVERY Episiotomy: None Laceration #1: None Laceration Extension #1: N/A Laceration Repair: Not Applicable Sponge Count Correct: N/A Sharps Count Correct: N/A CSECTION DELIVERY Primary Indication: N/A Secondary Indication: N/A CSection Incidence: N/A Labor: N/A Elective: N/A CSection Incision: N/A BABY A INFORMATION Delivery Date/Time: 01/08/2019 14:37 Method of Delivery: Vaginal Method of Delivery: Vaginal Born in Route : No : N/A Forceps: N/A Vacuum Extraction: N/A Shoulder Dystocia : No PRESENTATION/POSITION BABY A Presentation: Cephalic Cephalic Presentation: Vertex Vertex Position: Right Occipital Anterior Breech Presentation: N/A PLACENTA INFORMATION BABY A Placenta Delivery Time : 01/08/2019 14:42 Placenta Method of Delivery: Expressed Placenta Method of Delivery: Spontaneous Placenta Status: Delivered SCORES BABY A Heart Rate 1 min: >100 bpm Resp Effort 1 min: Good Cry Reflex Irritability 1 min: Cough or Sneeze or Pulls Away Muscle Tone 1 min: Active Motion Color 1 min: Blue/Pale Resuscitation Effort 1 min: Tactile Stimulation SCORE 1 MIN: 8 Heart Rate 5 min: >100 bpm Resp Effort 5 min: Good Cry Reflex Irritability 5 min: Cough or Sneeze or Pulls Away Muscle Tone 5 min: Active Motion Color 5 min: Body [place], Extremities Blue Resuscitation Effort 5 min: N/A SCORE 5 MIN: 9 INFORMATION BABY A Gestational Age at Delivery: 39.2 Gestational Status: Full Term- 39- 40.6 Weeks Infant Outcome : Liveborn Condition : Stable Infant Sex: Male Sex: Male IDENTIFICATION BABY A Verification Date/Time: 01/08/2019 14:56 ID Band Number: [id number] Mother's Name Verified: Yes RN Verifying Infant: MKelvin Long RN, A. Gisell RN WEIGHT/LENGTH BABY A Infant Birthweight (gm): 3407 Weight (lb): 7 Infant Weight (oz): 8 Infant Length (in): 20.00 Length (cm): 50.80 CORD INFORMATION BABY A No. Cord Vessels: 3 Nuchal Cord : Around Neck x1, Loose Cord Blood Taken: Yes-For Eval (Mom's Blood Type - or O+) Suction: None ASSESSMENT BABY A Skin to Skin: Yes BABY B INFORMATION : N/A SIGNATURES Assignment: Skyla White MD Signature: with User ID: Chano : with User ID: Chano : I was personally available for consultation and serving as supervising physician for the MLP. : I was personally available for consultation and serving as supervising physician for the MLP.
== END 2019-01-10 17:15 | disposition home or self-care (01) | DRG 998 ==
LOC: LR 06:49 → EEVIPCON 06:49 → 2S 16:31
PROVIDERS: ADMIT Student in an Organized Health Care Education/Training Program; ATTEND Student in an Organized Health Care Education/Training Program
PROC: 10E0XZZ Delivery of Products of Conception, External Approach (ICD-10-PCS; principal; 2019-01-08)
PROC: 3E0234Z Introduction of Serum, Toxoid and Vaccine into Muscle, Percutaneous Approach (ICD-10-PCS; 2019-01-10)
DX: O99.344 Other mental disorders complicating childbirth (principal); O99.324 Drug use complicating childbirth; F31.9 Bipolar disorder, unspecified; O9A.32 Physical abuse complicating childbirth; O99.824 Streptococcus B carrier state complicating childbirth; O99.334 Smoking (tobacco) complicating childbirth; O26.893 Other specified pregnancy related conditions, third trimester; Z67.11 Type A blood, Rh negative; O69.81X0 Labor and delivery complicated by cord around neck, without compression, not applicable or unspecified; F17.210 Nicotine dependence, cigarettes, uncomplicated; Z3A.39 39 weeks gestation of pregnancy; O99.02 Anemia complicating childbirth; D64.9 Anemia, unspecified; F14.10 Cocaine abuse, uncomplicated; F12.90 Cannabis use, unspecified, uncomplicated; Z91.040 Latex allergy status; Z88.0 Allergy status to penicillin; Z88.8 Allergy status to other drugs, medicaments and biological substances; Z91.018 Allergy to other foods
CPT/HCPCS: 36415; 80307; 81005; 85025; 85461; 86592; 86850; 86870; 86900; 86901; 94760; J1885; J2300; J2405; J2550; J2590; J2790; J3010; J3370; J3490

== ENCOUNTER 2019-07-30 09:39 | Emergency (ER) | payer SELFPAY ==
[2019-07-30] MEDS ORDERED: OXYCODONE-ACETAMINOPHEN 5-325 MG TABLET PO ONE (10:32)
[2019-07-30] MEDS ORDERED: ONDANSETRON 4 MG TAB.RAPDIS PO ONE (10:32)
--- NOTE | 2019-07-30 10:36 | ER Document Report ---
ED Medical Screen (RME) - General Chief Complaint: Vaginal Bleeding Stated Complaint: VAGINAL BLEEDING Time Seen by Provider: 07/30/19 10:28 Primary Care Provider: CY DUVAL MD [Primary Care Provider] - Follow up as needed Mode of Arrival: Ambulatory Information source: Patient Notes: This 37-year-old female presents emergency department with complaints of severe heavy bleeding with clots for the past month and a half. Patient reports weakness and nausea. She gives history of vaginal delivery in December. She reports soon after that she started using the NuvaRing. She reports she is bleeding so heavily she is wearing 2 pads. She also reports she goes through them at least once an hour. Patient reports she has been soaking her clothes with blood. She contacted her YARDER and was told to come the emergency department because she may need a D&C. Patient complains of abdominal pain and low back pain. She reports she feels pressure in her groin area. I have greeted and performed a rapid initial assessment of this patient. A comprehensive ED assessment and evaluation of the patient, analysis of test results and completion of the medical decision making process will be conducted by additional ED providers. TRAVEL OUTSIDE OF THE [place] IN LAST 30 DAYS: No - Related Data Allergies/Adverse Reactions: diphenhydramine HCl [From Benadryl] Allergy (Verified 07/30/19 10:33) latex [Latex] Allergy (Verified 07/30/19 10:33) amoxicillin [Amoxicillin] Adverse Reaction (Intermediate, Verified 07/30/19 10:33) Hallucinations Past Medical History Neurological Medical History: Denies: Hx Seizures Renal/ Medical History: Reports: Hx Kidney Stones. Denies: Hx Peritoneal Dialysis Psychiatric Medical History: Reports: Hx Bipolar Disorder, Hx Depression Past Surgical History: Reports: Hx Orthopedic Surgery - BL knee., Hx Tonsillectomy - and addenoidectomy. Denies: Hx Hysterectomy - Immunizations Hx Diphtheria, Pertussis, Tetanus Vaccination: No Physical Exam - Vital signs Vitals: Temp Pulse Resp BP Pulse Ox 98.4 F 88 18 140/76 H 99 07/30/19 09:43 07/30/19 09:43 07/30/19 09:43 07/30/19 09:43 07/30/19 09:43 Course - Vital Signs Vital signs: Temp Pulse Resp BP Pulse Ox 98.4 F 88 18 140/76 H 99 07/30/19 09:43 07/30/19 09:43 07/30/19 09:43 07/30/19 09:43 07/30/19 09:43 Doctor's Discharge - Discharge Referrals: CY DUVAL MD [Primary Care Provider] - Follow up as needed
[2019-07-30 11:25] LABS: ABSOLUTE EOSINOPHILS # (AUTO) 0.2 10^3/uL (0.0-0.6); ABSOLUTE LYMPHOCYTES (AUTO) 1.7 10^3/uL (0.5-4.7); ABSOLUTE MONOCYTES (AUTO) 0.6 10^3/uL (0.1-1.4); ABSOLUTE NEUT (AUTO) 5.4 10^3/uL (1.7-8.2); BASOPHILS % (AUTO) 0.5 % (0-2); EOSINOPHILS % (AUTO) 2.5 % (0-6); HEMATOCRIT 35.1 % (36.0-47.0); LYMPHOCYTES % (AUTO) 21.1 % (13-45); MEAN CORPUSCULAR HEMOGLOBIN 27.7 pg (27.0-33.4); MEAN CORPUSCULAR HGB CONC 34.1 g/dL (32.0-36.0); MEAN CORPUSCULAR VOLUME 81 fl (80-97); MONOCYTES % (AUTO) 7.3 % (3-13); PLATELET COUNT 279 10^3/uL (150-450); RED BLOOD COUNT 4.32 10^6/uL (3.72-5.28); RED CELL DISTRIBUTION WIDTH 14.3 % (11.5-14.0); SEGMENTED NEUTROPHILS % (AUTO) 68.6 % (42-78); TOTAL CELLS COUNTED % (AUTO) 100 %; WHITE BLOOD COUNT 7.9 10^3/uL (4.0-10.5)
[2019-07-30 11:26] LABS: ALBUMIN 4.4 g/dL (3.5-5.0); ANION GAP 11 (5-19); BLOOD UREA NITROGEN 12 mg/dL (7-20); CALCIUM 9.7 mg/dL (8.4-10.2); CARBON DIOXIDE 24 mmol/L (22-30); CHLORIDE 106 mmol/L (98-107); GLUCOSE 102 mg/dL (75-110); POTASSIUM 3.9 mmol/L (3.6-5.0)
[2019-07-30 11:27] LABS: ALKALINE PHOSPHATASE 85 U/L (38-126); ASPARTATE AMINO TRANSFERASE 19 U/L (14-36); BILIRUBIN,DIRECT 0.3 mg/dL (0.0-0.4); BILIRUBIN,TOTAL 0.4 mg/dL (0.2-1.3); TOTAL PROTEIN 7.6 g/dL (6.3-8.2)
--- NOTE | 2019-07-30 12:41 | RADIOLOGY REPORT (SQ) ---
EXAM DESCRIPTION: U/S NON-OB PELVIS TV W/O DOP COMPLETED DATE/TIME: 07/30/2019 12:21 pm REASON FOR STUDY: heavy bleeding, low abd pain COMPARISON: None. TECHNIQUE: Dynamic and static grayscale images acquired of the pelvis via transvaginal approach and recorded on PACS. Additional selected color Doppler and spectral images recorded. LIMITATIONS: None. FINDINGS: UTERUS: Contour normal. No mass. ENDOMETRIAL STRIPE: No focal or generalized thickening. No masses. CERVIX: The cervix measures 2.6 cm in length. Very small Nabothian cyst. RIGHT OVARY AND DOPPLER: Normal size. Small subcentimeter ovarian follicles. Normal arterial vascul ar flow without evidence for torsion. A 1.8 x 1.8 x 1.4 cm cystic area in the right adnexal region may represent a paraovarian cyst. LEFT OVARY AND DOPPLER: Normal size. Small subcentimeter ovarian follicles. No worrisome masses. No rmal arterial vascular flow without evidence for torsion. FREE FLUID: None noted. OTHER: No other significant finding. MEASUREMENTS: UTERUS: 9.3 x 5.8 x 4.8 cm ENDOMETRIAL STRIPE: 6.5 mm RIGHT OVARY: 3.2 x 1.9 x 2.1 cm LEFT OVARY: 2.7 x 1.9 x 2.2 cm IMPRESSION: 1. A well-circumscribed anechoic structure in the right adnexal region may represent a right paraovarian cyst. In view of the given history, correlation with lab values( test) soler ggested and follow-up examination. TECHNICAL DOCUMENTATION: JOB ID: [id number] 2010 [employer]- All Rights Reserved Rev-11/03 Reading location - IP/workstation name: [email or web address]
--- NOTE | 2019-07-30 13:31 | ER Document Report ---
ED General - General Chief Complaint: Vaginal Bleeding Stated Complaint: VAGINAL BLEEDING Time Seen by Provider: 07/30/19 10:28 Primary Care Provider: CY DUVAL MD [ACTIVE STAFF] - Follow up as needed Mode of Arrival: Ambulatory TRAVEL OUTSIDE OF THE [place] IN LAST 30 DAYS: No - HPI Notes: Patient is a 29-year-old female who presents to the emergency department for evaluation of vaginal bleeding. She just had a NuvaRing prescribed. She states she had vaginal bleeding every day for a month. She states this got heavy over the last several days. She states she is going through "8 pads in 2-1/2 hours." She used to use a "diva cup." She has some cramping and sharp abdominal pain. She called her OB, they recommended she come to the emergency department for further evaluation. - Related Data Allergies/Adverse Reactions: diphenhydramine HCl [From Benadryl] Allergy (Verified 07/30/19 10:33) latex [Latex] Allergy (Verified 07/30/19 10:33) amoxicillin [Amoxicillin] Adverse Reaction (Intermediate, Verified 07/30/19 10:33) Hallucinations Home Medications: None at this time. She discontinued her antidepressant as she thought it may be worsening her bleeding. Past Medical History - General Information source: Patient Last Menstrual Period: 07/10/2019 - Social History Smoking Status: Current Every Day Smoker Chew tobacco use (# tins/day): No Frequency of alcohol use: None Drug Abuse: None Family History: Reviewed & Not Pertinent - pt is adopted unsure of family history Patient has suicidal ideation: No Patient has homicidal ideation: No Neurological Medical History: Denies: Hx Seizures Renal/ Medical History: Reports: Hx Kidney Stones. Denies: Hx Peritoneal Dialysis Psychiatric Medical History: Reports: Hx Bipolar Disorder, Hx Depression Past Surgical History: Reports: Hx Orthopedic Surgery - BL knee., Hx Tonsillectomy - and addenoidectomy. Denies: Hx Hysterectomy - Immunizations Hx Diphtheria, Pertussis, Tetanus Vaccination: No Review of Systems - Review of Systems Female Genitourinary: See HPI -: Yes All other systems reviewed and negative Physical Exam - Vital signs Vitals: Temp Pulse Resp BP Pulse Ox 98.4 F 88 18 140/76 H 99 07/30/19 09:43 07/30/19 09:43 07/30/19 09:43 07/30/19 09:43 07/30/19 09:43 - Notes Notes: vital signs reviewed, please refer to chart. Head is normocephalic, atraumatic. Pupils equal round, reactive to light. Neck is supple without meningismus. Heart is regular rate and rhythm. Lungs are clear to auscultation bilaterally. Abdomen is soft, nontender, normoactive bowel sounds throughout. Extremities without cyanosis, clubbing. Posterior calves are nontender. Peripheral pulses are equal. Skin is warm and dry. Pelvic exam was performed with SUYAPA Jones, present in the room. There is a mild amount of vaginal bleeding. Normal external genitalia without lesions. Speculum exam is performed. Cervical loss is closed, minimal bleeding, no lesions of observed. Course - Re-evaluation Re-evalutation: 07/30/19 13:30 Patient presents emergency department for evaluation. On exam she only has minimal bleeding. Her hemoglobin is 12. Her ultrasound revealed a cyst but no other acute findings. Her is negative. At this point she is to follow-up closely with [facility], return to the emergency department for worsening or new concerning symptoms of any sort. - Vital Signs Vital signs: Temp Pulse Resp BP Pulse Ox 98.4 F 88 18 140/76 H 99 07/30/19 09:43 07/30/19 09:43 07/30/19 09:43 07/30/19 09:43 07/30/19 09:43 - Laboratory Result Diagrams: 07/30/19 10:45 07/30/19 10:45 Laboratory results interpreted by me: 07/30/19 10:45 Hct 35.1 L RDW 14.3 H Discharge - Discharge Clinical Impression: Abnormal vaginal bleeding Ovarian cyst Qualifiers: Laterality: unspecified laterality Qualified Code(s): N83.209 - Unspecified ovarian cyst, unspecified side Condition: Stable Disposition: HOME, SELF-CARE Instructions: Ovarian Cyst ([facility]), Vaginal Bleeding ([facility]) Additional Instructions: Follow-up with gynecology this week. If your bleeding worsens, or you develop new or concerning symptoms of any sort, please return immediately to the emergency department for evaluation. Referrals: CY DUVAL MD [ACTIVE STAFF] - Follow up as needed
[2019-07-30 14:12] VITALS: BP 115/61
== END 2019-07-30 14:10 | disposition home or self-care (01) ==
LOC: ER 09:39
DX: N93.9 Abnormal uterine and vaginal bleeding, unspecified (principal); N83.209 Unspecified ovarian cyst, unspecified side; R10.9 Unspecified abdominal pain; F17.200 Nicotine dependence, unspecified, uncomplicated; Z97.5 Presence of (intrauterine) contraceptive device; Z88.8 Allergy status to other drugs, medicaments and biological substances; Z91.040 Latex allergy status; Z88.0 Allergy status to penicillin
CPT/HCPCS: 99284; 86900; 86901; 36415; 86870; 86850; 84703; 85025; 80053; 76830; S0119

== ENCOUNTER 2019-12-02 07:20 | Emergency (ER) | payer MEDICAID ==
[2019-12-02 08:11] LABS: ABSOLUTE BASOPHILS # (AUTO) 0.1 10^3/uL (0.0-0.2); ABSOLUTE EOSINOPHILS # (AUTO) 0.1 10^3/uL (0.0-0.6); ABSOLUTE LYMPHOCYTES (AUTO) 2.3 10^3/uL (0.5-4.7); ABSOLUTE MONOCYTES (AUTO) 0.9 10^3/uL (0.1-1.4); ABSOLUTE NEUT (AUTO) 9.8 10^3/uL (1.7-8.2); BASOPHILS % (AUTO) 0.5 % (0-2); EOSINOPHILS % (AUTO) 0.8 % (0-6); HEMATOCRIT 32.5 % (36.0-47.0); LYMPHOCYTES % (AUTO) 17.3 % (13-45); MEAN CORPUSCULAR HGB CONC 33.9 g/dL (32.0-36.0); MEAN CORPUSCULAR VOLUME 80 fl (80-97); MONOCYTES % (AUTO) 6.5 % (3-13); PLATELET COUNT 266 10^3/uL (150-450); RED BLOOD COUNT 4.08 10^6/uL (3.72-5.28); RED CELL DISTRIBUTION WIDTH 16.7 % (11.5-14.0); SEGMENTED NEUTROPHILS % (AUTO) 74.9 % (42-78); TOTAL CELLS COUNTED % (AUTO) 100 %; WHITE BLOOD COUNT 13.1 10^3/uL (4.0-10.5)
[2019-12-02 08:16] LABS: INTERNATIONAL RATION (INR) 1.05; PROTHROMBIN TIME 13.7 SEC (11.4-15.4)
[2019-12-02 08:17] LABS: PARTIAL THROMBOPLASTIN TIME 28.6 SEC (23.5-35.8)
[2019-12-02 08:20] LABS: APPEARANCE,URINE SLIGHTLY-CLOUDY; BILIRUBIN,URINE NEGATIVE (NEGATIVE); COLOR,URINE YELLOW; GLUCOSE, URINE NEGATIVE (NEGATIVE); KETONES,URINE NEGATIVE (NEGATIVE); LEUKOCYTE ESTERASE,URINE NEGATIVE (NEGATIVE); NITRITE,URINE NEGATIVE (NEGATIVE); PROTEIN,URINE NEGATIVE (NEGATIVE); URINE SPECIFIC GRAVITY 1.015; UROBILINOGEN,URINE NEGATIVE mg/dL (<2.0)
[2019-12-02 08:31] LABS: ALBUMIN 3.8 g/dL (3.5-5.0); ALKALINE PHOSPHATASE 77 U/L (38-126); ANION GAP 7 (5-19); ASPARTATE AMINO TRANSFERASE 14 U/L (14-36); BILIRUBIN,TOTAL 0.2 mg/dL (0.2-1.3); BLOOD UREA NITROGEN 6 mg/dL (7-20); CALCIUM 9.1 mg/dL (8.4-10.2); CARBON DIOXIDE 22 mmol/L (22-30); CHLORIDE 106 mmol/L (98-107); GLUCOSE 100 mg/dL (75-110); TOTAL PROTEIN 6.8 g/dL (6.3-8.2)
[2019-12-02 08:34] LABS: ACETAMINOPHEN < 10 ug/mL (10-30); ALCOHOL < 10 mg/dL (NONE DETECTED); SALICYLATE < 1.0 mg/dL (2.0-20.0)
[2019-12-02 08:39] LABS: URINE AMPHETAMINES SCREEN NEGATIVE; URINE BARBITURATES SCREEN NEGATIVE; URINE BENZODIAZEPINES SCREEN NEGATIVE; URINE COCAINE SCREEN NEGATIVE; URINE METHADONE SCREEN NEGATIVE; URINE PHENCYCLIDINE SCREEN NEGATIVE
[2019-12-02 08:41] LABS: URINE MARIJUANA (THC) SCREEN UNCONFIRMED POSITIVE
--- NOTE | 2019-12-02 10:52 | RADIOLOGY REPORT (SQ) ---
EXAM DESCRIPTION: U/S OB 14+ TRNABD 1GES W/O DOP IMAGES COMPLETED DATE/TIME: 12/02/2019 10:02 am REASON FOR STUDY: vaginal spotting, brown color x 4 days COMPARISON: Pelvic ultrasound 07/30/2019 TECHNIQUE: Static and Dynamic grayscale imaging performed of gravid uterus using transabdominal appr oach. Additional selected color Doppler and spectral images recorded. All stored on PACS. LIMITATIONS: None. FINDINGS: FETUSES SEEN:1 EGA: 18 weeks 0 days Calculated using BPD,FL,HC,AC documented on images. No discrepancy with clinica l dates. CHELSEA: 05/04/2020 EFW: 224 grams PERCENTILE: Not calculated ISAIAH: Largest pocket 6.6 x 6.1 cm PLACENTA: Developing anteriorly grade 1, low lying without gross evidence of previa or abruption PRESENTATION: Variable ANATOMY: HEART RATE: 152 beats per minute. FOUR CHAMBER HEART: Visualized. THREE VESSEL CORD: Yes. CORD INSERTION: Visualized. KIDNEYS AND BLADDER: Not well seen STOMACH: Visualized. Appears normal. SPINE: Normal as visualized. BRAIN AND LATERAL VENTRICLES: Visualized. Appear normal. OTHER: No other significant finding. MATERNAL ADNEXA: Maternal ovaries not visualized. CERVICAL LENGTH: Closed, 3.9 cm in length. OTHER: No other significant finding. IMPRESSION: LIVING INTRAUTERINE . ESTIMATED GESTATIONAL AGE 18 weeks 0 days NO VISUALIZED ANOMALIES. Trimester of : Second trimester - 13 weeks 1 day to 27 weeks 6 days. TECHNICAL DOCUMENTATION: JOB ID: [id number] 2010 [employer]- All Rights Reserved Reading location - IP/workstation name: [email or web address]
--- NOTE | 2019-12-02 12:56 | ER Document Report ---
Entered by VERNON REYNOLDS SCRIBE 12/02/19 0759 Acting as scribe for:MICHAEL RAMÍREZ MD ED General - General Chief Complaint: Facial Swelling Stated Complaint: FACIAL SWELLING Time Seen by Provider: 12/02/19 07:31 Information source: Patient Notes: This 29 year old female patient present to the emergency department today with complaints of her face and hands feeling swollen/puffy when she woke up this morning x3.5 hours ago. Patient states she is A5 and currently x18 weeks . Patient states an ultrasound was done x8 weeks ago and she has been told that she is high risk because of elevated T-cells and she is Rh negative. Patient reports a headache, nose bleed, nausea, and feeling cold. Patient reports some vaginal bleeding that is brown and denies clots. Denies vomiting, diarrhea, sore throat, urinary symptoms, or labor cramps. Patient states she drank wine last night. TRAVEL OUTSIDE OF THE [place] IN LAST 30 DAYS: No - Related Data Allergies/Adverse Reactions: diphenhydramine HCl [From Benadryl] Allergy (Verified 07/30/19 10:33) latex [Latex] Allergy (Verified 07/30/19 10:33) amoxicillin [Amoxicillin] Adverse Reaction (Intermediate, Verified 07/30/19 10:33) Hallucinations Past Medical History - General Information source: Patient - Social History Smoking Status: Current Every Day Smoker Cigarette use (# per day): Yes Frequency of alcohol use: Occasional Family History: Reviewed & Not Pertinent - pt is adopted unsure of family history Renal/ Medical History: Reports: Hx Kidney Stones Psychiatric Medical History: Reports: Hx Bipolar Disorder, Hx Borderline Personality Disorder, Hx Depression Past Surgical History: Reports: Hx Orthopedic Surgery - BL knee., Hx Tonsillectomy - and addenoidectomy - Immunizations Hx Diphtheria, Pertussis, Tetanus Vaccination: No Review of Systems - Review of Systems Constitutional: See HPI EENT: See HPI. denies: Throat pain Cardiovascular: No symptoms reported Respiratory: No symptoms reported Gastrointestinal: See HPI, Nausea. denies: Diarrhea, Vomiting Genitourinary: See HPI Female Genitourinary: See HPI, , Vaginal bleeding Musculoskeletal: See HPI, Other - Face/hand swelling Skin: No symptoms reported Hematologic/Lymphatic: No symptoms reported Neurological/Psychological: See HPI, Headaches -: Yes All other systems reviewed and negative Physical Exam - Vital signs Vitals: Temp Pulse Resp BP Pulse Ox 97.9 F 100 16 123/54 L 100 12/02/19 07:24 12/02/19 07:24 12/02/19 07:24 12/02/19 07:24 12/02/19 07:24 - General General appearance: Appears well, Alert - HEENT Head: Normocephalic, Atraumatic Eyes: Normal Pupils: PERRL Ears: Normal External canal: Normal Tympanic membrane: Normal Nasal: Normal Pharynx: Normal Neck: Normal - Respiratory Respiratory status: No respiratory distress Chest status: Nontender Breath sounds: Normal Chest palpation: Normal - Cardiovascular Rhythm: Regular Heart sounds: Normal auscultation Murmur: No - Abdominal Inspection: Normal - Soft, Gravid female Distension: No distension Bowel sounds: Normal Tenderness: Nontender - Extremities General upper extremity: Normal inspection. No: Edema General lower extremity: Normal inspection. No: Edema - Neurological Neuro grossly intact: Yes Cognition: Normal Orientation: AAOx4 - Psychological Associated symptoms: Normal affect, Normal mood - Skin Skin Temperature: Warm Skin Moisture: Dry Skin Color: Normal Course - Re-evaluation Re-evalutation: 12/02/19 12:51 Patient resting comfortably not showing any signs of distress at this time. Patient was able to visit visualize her body including her face and states that her swelling had resolved prior to getting to the emergency department. 12/02/19 12:53 Case discussed with the on-call center agent for the women's health clinic who recommended that it was not necessarily M required to give RhoGam for patient Rh- who has dark brown vaginal bleeding. Patient has no active bleeding at this time on ultrasound and has no bright red blood per vagina at this time. - Vital Signs Vital signs: Temp Pulse Resp BP Pulse Ox 97.9 F 100 16 123/54 L 100 12/02/19 08:19 12/02/19 07:24 12/02/19 07:24 12/02/19 07:24 12/02/19 07:24 12/02/19 12:51 Vital signs stable - Laboratory Result Diagrams: 12/02/19 07:51 12/02/19 07:51 Laboratory results interpreted by me: 12/02/19 12/02/19 12/02/19 07:51 07:51 07:51 WBC 13.1 H Hgb 11.0 L Hct 32.5 L RDW 16.7 H Absolute Neuts (auto) 9.8 H Sodium 134.8 L BUN 6 L Creatinine 0.46 L Serum HCG, Qual Beta HCG, Quant 33218.00 H Urine Blood MODERATE H Salicylates < 1.0 L Acetaminophen < 10 L 12/02/19 07:51 WBC Hgb Hct RDW Absolute Neuts (auto) Sodium BUN Creatinine Serum HCG, Qual POSITIVE H Beta HCG, Quant Urine Blood Salicylates Acetaminophen Laboratories essentially within normal and normal limits except that there is a moderate amount of blood in her urine patient did give a history that she was having dark blood per vagina and spots. Patient is documented prove and with a beta-hCG of 12,447 patient is 18 weeks . 12/02/19 12:55 Leukocytosis noted at 13,000 without any evidence of acute infection. - Diagnostic Test Radiology reviewed: Image reviewed, Reports reviewed Radiology results interpreted by me: 12/02/19 12:53 Ultrasound of the pelvis OB shows 18 weeks 0 days intrauterine with no acute process heart rate 152 no evidence of any bleeding. Discharge - Discharge Clinical Impression: Second trimester , Threatened miscarriage, Bipolar disorder, Rh neg ative status during Condition: Stable Disposition: HOME, SELF-CARE Instructions: Threatened Miscarriage ([facility]), ([facility]), Bleeding During Early ([facility]) Additional Instructions: There are no new prescriptions to take at this time. Continue your current regimen of medications including your vitamins. Recommend you do follow-up with the women's health clinic in 1 day. I personally performed the services described in the documentation, reviewed and edited the documentation which was dictated to the scribe in my presence, and it accurately records my words and actions.
[2019-12-02 13:28] VITALS: BP 128/66
== END 2019-12-02 13:28 | disposition home or self-care (01) ==
LOC: EEVIPCON 07:20 → ER 07:20
DX: O20.0 Threatened abortion (principal); O26.892 Other specified pregnancy related conditions, second trimester; R31.9 Hematuria, unspecified; R51 Headache; R04.0 Epistaxis; R11.0 Nausea; R22.0 Localized swelling, mass and lump, head; O99.89 Other specified diseases and conditions complicating pregnancy, childbirth and the puerperium; M79.89 Other specified soft tissue disorders; O99.342 Other mental disorders complicating pregnancy, second trimester; F31.9 Bipolar disorder, unspecified; O99.332 Smoking (tobacco) complicating pregnancy, second trimester; F17.210 Nicotine dependence, cigarettes, uncomplicated; Z3A.18 18 weeks gestation of pregnancy; Z88.8 Allergy status to other drugs, medicaments and biological substances; Z91.040 Latex allergy status
CPT/HCPCS: 36415; 76805; 80053; 80307; 81001; 84702; 84703; 85025; 85610; 85730; 86850; 86870; 86900; 86901; 99284

== ENCOUNTER 2019-12-18 17:08 | Emergency (ER) | payer MEDICAID ==
--- NOTE | 2019-12-18 18:31 | ER Document Report ---
ED Medical Screen (RME) - General Chief Complaint: Psych Problem Stated Complaint: PSYCH EVAL Time Seen by Provider: 12/18/19 18:25 Mode of Arrival: Wheelchair Information source: Patient Notes: HPI; 29-year-old 20-week female with a history of anxiety, depression, suicidal ideation and previous suicide attempts, presents to the emergency room stating "I feel like my meds are not working" "I need help." Patient states that she is continuing to have suicidal thoughts but denies a plan at this time. Previous suicide attempts including overdosing on Klonopin and Adderall. PE: Alert and oriented x3. Moderate distress noted. Anxious in triage. Denies a suicidal plan. Lungs: Clear to auscultation without rales, rhonchi, wheezes. Heart: Regular rate rhythm without murmurs, rubs, gallops. I have greeted and performed a rapid initial assessment of this patient. A comprehensive ED assessment and evaluation of the patient, analysis of test results and completion of the medical decision making process will be conducted by additional ED providers. I have specifically instructed the patient or family members with the patient to immediately return to any nursing staff s hould anything change in the patient's condition or with their chief complaint. TRAVEL OUTSIDE OF THE [place] IN LAST 30 DAYS: No - Related Data Allergies/Adverse Reactions: diphenhydramine HCl [From Benadryl] Allergy (Verified 07/30/19 10:33) latex [Latex] Allergy (Verified 07/30/19 10:33) amoxicillin [Amoxicillin] Adverse Reaction (Intermediate, Verified 07/30/19 10:33) Hallucinations Home Medications: latuda, busprione Past Medical History - Social History Chew tobacco use (# tins/day): No Frequency of alcohol use: None Drug Abuse: None Neurological Medical History: Denies: Hx Seizures Renal/ Medical History: Reports: Hx Kidney Stones. Denies: Hx Peritoneal Dialysis Psychiatric Medical History: Reports: Hx Bipolar Disorder, Hx Borderline Personality Disorder, Hx Depression Past Surgical History: Reports: Hx Orthopedic Surgery - BL knee., Hx Tonsillectomy - and addenoidectomy. Denies: Hx Hysterectomy - Immunizations Hx Diphtheria, Pertussis, Tetanus Vaccination: No Physical Exam - Vital signs Vitals: Temp Pulse Resp BP Pulse Ox 99.4 F 96 20 107/65 100 12/18/19 17:31 12/18/19 17:31 12/18/19 17:31 12/18/19 17:31 12/18/19 17:31 Course - Vital Signs Vital signs: Temp Pulse Resp BP Pulse Ox 99.4 F 96 20 107/65 100 12/18/19 18:24 12/18/19 17:31 12/18/19 17:31 12/18/19 17:31 12/18/19 17:31
[2019-12-18 19:06] LABS: ABSOLUTE EOSINOPHILS # (AUTO) 0.1 10^3/uL (0.0-0.6); ABSOLUTE LYMPHOCYTES (AUTO) 2.1 10^3/uL (0.5-4.7); ABSOLUTE MONOCYTES (AUTO) 0.7 10^3/uL (0.1-1.4); ABSOLUTE NEUT (AUTO) 9.7 10^3/uL (1.7-8.2); BASOPHILS % (AUTO) 0.1 % (0-2); HEMATOCRIT 32.4 % (36.0-47.0); HEMOGLOBIN 11.2 g/dL (12.0-15.5); MEAN CORPUSCULAR HEMOGLOBIN 27.6 pg (27.0-33.4); MEAN CORPUSCULAR HGB CONC 34.5 g/dL (32.0-36.0); MEAN CORPUSCULAR VOLUME 80 fl (80-97); MONOCYTES % (AUTO) 5.2 % (3-13); PLATELET COUNT 267 10^3/uL (150-450); RED BLOOD COUNT 4.04 10^6/uL (3.72-5.28); RED CELL DISTRIBUTION WIDTH 16.9 % (11.5-14.0); SEGMENTED NEUTROPHILS % (AUTO) 76.7 % (42-78); TOTAL CELLS COUNTED % (AUTO) 100 %; WHITE BLOOD COUNT 12.6 10^3/uL (4.0-10.5)
[2019-12-18 19:11] LABS: APPEARANCE,URINE CLOUDY; BILIRUBIN,URINE NEGATIVE (NEGATIVE); CALCIUM OXALATE CRYSTALS,URINE MODERATE /HPF; COLOR,URINE YELLOW; GLUCOSE, URINE NEGATIVE (NEGATIVE); KETONES,URINE TRACE mg/dL (NEGATIVE); LEUKOCYTE ESTERASE,URINE TRACE (NEGATIVE); NITRITE,URINE NEGATIVE (NEGATIVE); PROTEIN,URINE NEGATIVE (NEGATIVE); URINE SPECIFIC GRAVITY 1.021; UROBILINOGEN,URINE NEGATIVE mg/dL (<2.0)
[2019-12-18 19:19] LABS: ALBUMIN 3.9 g/dL (3.5-5.0); ALKALINE PHOSPHATASE 69 U/L (38-126); ANION GAP 6 (5-19); ASPARTATE AMINO TRANSFERASE 16 U/L (14-36); BILIRUBIN,TOTAL 0.3 mg/dL (0.2-1.3); BLOOD UREA NITROGEN 7 mg/dL (7-20); CALCIUM 9.1 mg/dL (8.4-10.2); CARBON DIOXIDE 23 mmol/L (22-30); CHLORIDE 105 mmol/L (98-107); GLUCOSE 86 mg/dL (75-110); POTASSIUM 3.7 mmol/L (3.6-5.0); TOTAL PROTEIN 7.1 g/dL (6.3-8.2)
[2019-12-18 19:21] LABS: ACETAMINOPHEN < 10 ug/mL (10-30); ALCOHOL < 10 mg/dL (NONE DETECTED); SALICYLATE < 1.0 mg/dL (2.0-20.0)
[2019-12-18 19:22] LABS: URINE AMPHETAMINES SCREEN NEGATIVE; URINE BARBITURATES SCREEN NEGATIVE; URINE BENZODIAZEPINES SCREEN NEGATIVE; URINE COCAINE SCREEN NEGATIVE; URINE MARIJUANA (THC) SCREEN NEGATIVE; URINE METHADONE SCREEN NEGATIVE; URINE PHENCYCLIDINE SCREEN NEGATIVE
--- NOTE | 2019-12-18 20:23 | ER Document Report ---
ED General <ROXI HASSAN - Last Filed: 12/18/19 20:32> - General Mode of Arrival: Wheelchair TRAVEL OUTSIDE OF THE [place] IN LAST 30 DAYS: No - Related Data Home Medications: latuda, busprione <CONNIE MADISON - Last Filed: 12/18/19 21:33> - General Chief Complaint: Suicidal Ideation Stated Complaint: PSYCH EVAL Time Seen by Provider: 12/18/19 18:25 Primary Care Provider: Cassius Keyes [Outside] - Follow up tomorrow - HPI Notes: Patient is a 29-year-old female who presents to the emergency department for evaluation of depression, "needs my meds adjusted," suicidal ideation without plan. She has overdosed in the past. She states she really does not have a plan, I do think she needs help with regulation of her medications. She is looking forward to the of her child. She denies any homicidal ideation. No visual or auditory hallucinations. She denies any pain. She is feeling the baby move. She has no urinary symptoms. She has had no vaginal bleeding. (CONNIE MADISON) - Related Data Allergies/Adverse Reactions: diphenhydramine HCl [From Benadryl] Allergy (Verified 07/30/19 10:33) latex [Latex] Allergy (Verified 07/30/19 10:33) amoxicillin [Amoxicillin] Adverse Reaction (Intermediate, Verified 07/30/19 10:33) Hallucinations Past Medical History - General Information source: Patient - Social History Smoking Status: Current Every Day Smoker Chew tobacco use (# tins/day): No Frequency of alcohol use: None Drug Abuse: None - Former cocaine abuse Family History: Reviewed & Not Pertinent - pt is adopted unsure of family history Neurological Medical History: Denies: Hx Seizures Renal/ Medical History: Reports: Hx Kidney Stones. Denies: Hx Peritoneal Dialysis Psychiatric Medical History: Reports: Hx Bipolar Disorder, Hx Borderline Personality Disorder, Hx Depression Past Surgical History: Reports: Hx Orthopedic Surgery - BL knee., Hx T onsillectomy - and addenoidectomy. Denies: Hx Hysterectomy - Immunizations Hx Diphtheria, Pertussis, Tetanus Vaccination: No <CONNIE MADISON - Last Filed: 12/18/19 21:33> Review of Systems - Review of Systems Neurological/Psychological: See HPI -: Yes All other systems reviewed and negative <CONNIE MADISON - Last Filed: 12/18/19 21:33> Physical Exam <CONNIE MADISON - Last Filed: 12/18/19 21:33> - Vital signs Vitals: Temp Pulse Resp BP Pulse Ox 99.4 F 96 20 107/65 100 12/18/19 17:31 12/18/19 17:31 12/18/19 17:31 12/18/19 17:31 12/18/19 17:31 - Notes Notes: This is a 29-year-old female who appears her stated age. She is resting comfortably, actually sleeping when I walk into the room. She wakes easily to verbal stimuli, is calm and cooperative with examiner. Makes good eye contact. Vital signs reviewed, please refer to chart. Head is normocephalic, atraumatic. Pupils equal round, reactive to light. Neck is supple without meningismus. Heart is regular rate and rhythm. Lungs are clear to auscultation bilaterally. Abdomen is gravid, nontender, normoactive bowel sounds throughout. Extremities without cyanosis, clubbing. Posterior calves are nontender. Peripheral pulses are equal. Skin is warm and dry. Patient is awake, alert, neurological exam is nonfocal. (CONNIE MADISON) Course - Laboratory Result Diagrams: 12/18/19 18:40 12/18/19 18:40 <ROXI HASSAN - Last Filed: 12/18/19 20:32> - Laboratory Result Diagrams: 12/18/19 18:40 12/18/19 18:40 <CONNIE MADISON - Last Filed: 12/18/19 21:33> - Re-evaluation Re-evalutation: 12/18/19 21:31 Patient presents to the emergency department for evaluation. She was medically cleared, seen by us social work. The patient has outpatient follow-up. She Benny has psychiatric medications on board. She is looking forward to the future. She has suicidal thoughts but without a plan. She seems to have some good insight. At this point she is cleared from a medical standpoint, and psychosocial team believe that outpatient follow-up is most appropriate. Patient feels safe, states she has a safe place to go, and feels comfortable with discharge. Otherwise she is to continue her medications, return to the ED with worsening or new concerning symptoms of any sort. 12/18/19 21:32 Please note that because of the few white cells in her urine I did ahead and sent for culture. It is likely contaminant, but this was performed anyway given her state. (CONNIE MADISON) - Vital Signs Vital signs: Temp Pulse Resp BP Pulse Ox 99.4 F 96 20 107/65 100 12/18/19 18:24 12/18/19 17:31 12/18/19 17:31 12/18/19 17:31 12/18/19 17:31 - Laboratory Laboratory results interpreted by me: 12/18/19 12/18/19 12/18/19 18:40 18:40 18:40 WBC 12.6 H Hgb 11.2 L Hct 32.4 L RDW 16.9 H Absolute Neuts (auto) 9.7 H Sodium 133.6 L Creatinine 0.46 L Urine Ketones TRACE H Urine Blood MODERATE H Ur Leukocyte Esterase TRACE H Salicylates < 1.0 L Acetaminophen < 10 L - EKG Interpretation by Me Additional EKG results interpreted by me: 12/18/19 21:32 Sinus mechanism with a rate of 85 bpm. Normal axis and intervals. No acute ST changes concerning for ischemia or infarction. (CONNIE MADISON) Discharge <ROXI HASSAN - Last Filed: 12/18/19 20:32> <CONNIE MADISON - Last Filed: 12/18/19 21:33> - Discharge Clinical Impression: Suicidal ideation Condition: Stable Disposition: HOME, SELF-CARE Additional Instructions: You have been evaluated both medical and behavioral health teams have been deemed appropriate for discharge. Please walk in to your outpatient mental health provider, [facility], for medication adjustments tomorrow morning at 8 AM. You have also been provided local resource list of area providers including [facility] and mobile crisis contact information. You are encouraged to engage in both medication management and therapy. Therapy should be goal orientated to assist you in interpreting your environment, understanding her tri ggers, and building your positive coping skills. DEPRESSION: Your evaluation reveals that you have mental depression. While symptoms may be vague, they often include disturbance of sleep, fatigue, loss of appetite, and general loss of interest in life. While depression may be a side effect of drugs, or a reaction to a major change in your life, many cases have no known cause. If depression is acute, and related to a major loss in your life, you can expect it to clear completely with time. If you have been depressed a long time, are prone to repeated bouts of depression or low mood, or have been thinking of suicide, get help. Depression can be treated with anti-depressant medication and counselling. Long-term depression will often take a few weeks to clear, even with appropriate medication. Follow-up care is important. SUICIDAL IDEATION: Suicidal ideation is a common medical term for thoughts about suicide, which may be as detailed as a formulated plan, without the suicidal act itself. Although most people who undergo suicidal ideation do not commit suicide, some go on to make suicide attempts. The range of suicidal ideation varies greatly from fleeting to detailed planning, role playing, and unsuccessful attempts. While thoughts about suicide are common, most people do not carry out serious actions to commit suicide. Based upon your evaluation and discussion with you, we do not believe you are currently at risk to act upon your thoughts of suicide. You have agreed to return to the Emergency Department, at any time, if you feel inclined to act upon your suicidal thoughts. FOLLOW-UP CARE: If you have been referred to a physician for follow-up care, call the physicians office for an appointment as you were instructed or within the next two days. If you experience worsening or a significant change in your symptoms, notify the physician immediately or return to the Emergency Department at any time for re-evaluation. Referrals: [facility] [Outside] - Follow up tomorrow
--- NOTE | 2019-12-18 22:04 | EKG REPORT ---
SEVERITY:- NORMAL ECG - SINUS RHYTHM : Confirmed by: Hanh Bonilla MD 18-Dec-2019 22:03:42
[2019-12-18 22:07] VITALS: BP 97/61
== END 2019-12-18 22:07 | disposition home or self-care (01) ==
LOC: ER 17:08
DX: O99.342 Other mental disorders complicating pregnancy, second trimester (principal); R45.851 Suicidal ideations; F32.9 Major depressive disorder, single episode, unspecified; O99.332 Smoking (tobacco) complicating pregnancy, second trimester; Z3A.20 20 weeks gestation of pregnancy; Z91.040 Latex allergy status
CPT/HCPCS: 36415; 80053; 80307; 81001; 85025; 87086; 87088; 87186; 93005; 93010; 99285

== ENCOUNTER 2020-01-30 17:02 | Emergency (ER) | payer MEDICAID ==
[2020-01-30] MEDS ORDERED: HYDROCODONE/ACETAMINOPHEN 5-325 MG TABLET PO ONE (17:46)
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
--- NOTE | 2020-01-30 17:54 | RADIOLOGY REPORT (SQ) ---
EXAM DESCRIPTION: ANKLE LEFT AP/LATERAL IMAGES COMPLETED DATE/TIME: 01/30/2020 5:26 pm REASON FOR STUDY: deformity COMPARISON: None. NUMBER OF VIEWS: Two views. TECHNIQUE: AP and lateral radiographic images acquired of the left ankle. LIMITATIONS: Limited positioning. FINDINGS: MINERALIZATION: Normal. BONES: No acute fracture or dislocation. Small corticated structure adjacent to the lateral malleolu s, likely an accessory ossicle versus old injury. No worrisome bone lesions. JOINTS: No effusions. SOFT TISSUES: Lateral soft tissue swelling. No foreign body. OTHER: No other significant finding. IMPRESSION: LATERAL SOFT TISSUE SWELLING. NO FRACTURE. TECHNICAL DOCUMENTATION: JOB ID: [id number] 2010 [employer]- All Rights Reserved Reading location - IP/workstation name: [email or web address]
[2020-01-30 17:58] VITALS: BP 120/60
== END 2020-01-30 19:12 | disposition home or self-care (01) ==
LOC: ER 17:02
PROC: 2W3RX1Z Immobilization of Left Lower Leg using Splint (ICD-10-PCS; principal; 2020-01-30)
DX: O9A.212 Injury, poisoning and certain other consequences of external causes complicating pregnancy, second trimester (principal); S93.402A Sprain of unspecified ligament of left ankle, initial encounter; M25.572 Pain in left ankle and joints of left foot; M79.89 Other specified soft tissue disorders; W01.0XXA Fall on same level from slipping, tripping and stumbling without subsequent striking against object, initial encounter; Z3A.26 26 weeks gestation of pregnancy; F17.200 Nicotine dependence, unspecified, uncomplicated
CPT/HCPCS: 99283

== ENCOUNTER 2020-02-15 21:52 | Emergency (ER) | payer MEDICAID ==
[2020-02-15] MEDS ORDERED: ONDANSETRON 4 MG TAB.RAPDIS PO ONE (22:52)
[2020-02-15] MEDS ORDERED: LIDOCAINE 2% VISCOUS SOLN 15 ML UDCUP PO ONE (22:52)
[2020-02-15] MEDS ORDERED: METOCLOPRAMIDE HCL ORAL SOLN 10 MG/10 ML UDCUP PO ONE (22:52)
[2020-02-15] MEDS ORDERED: MAG HYDROX/AL HYDROX/SIMETH SUSP 30 ML UDCUP PO ONE (22:52)
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
[2020-02-15 23:32] LABS: ABSOLUTE EOSINOPHILS # (AUTO) 0.1 10^3/uL (0.0-0.6); ABSOLUTE LYMPHOCYTES (AUTO) 2.4 10^3/uL (0.5-4.7); ABSOLUTE MONOCYTES (AUTO) 1.1 10^3/uL (0.1-1.4); ABSOLUTE NEUT (AUTO) 12.3 10^3/uL (1.7-8.2); BASOPHILS % (AUTO) 0.2 % (0-2); EOSINOPHILS % (AUTO) 0.7 % (0-6); HEMATOCRIT 27.8 % (36.0-47.0); HEMOGLOBIN 9.1 g/dL (12.0-15.5); LYMPHOCYTES % (AUTO) 14.9 % (13-45); MEAN CORPUSCULAR HGB CONC 32.9 g/dL (32.0-36.0); MEAN CORPUSCULAR VOLUME 79 fl (80-97); MONOCYTES % (AUTO) 6.7 % (3-13); PLATELET COUNT 226 10^3/uL (150-450); RED BLOOD COUNT 3.52 10^6/uL (3.72-5.28); RED CELL DISTRIBUTION WIDTH 15.4 % (11.5-14.0); SEGMENTED NEUTROPHILS % (AUTO) 77.5 % (42-78); TOTAL CELLS COUNTED % (AUTO) 100 %; WHITE BLOOD COUNT 15.9 10^3/uL (4.0-10.5)
--- NOTE | 2020-02-15 23:36 | RADIOLOGY REPORT (SQ) ---
Left foot radiographs: 02/15/2020 10:34 PM CDT TECHNIQUE: AP, lateral, oblique images of the left foot were obtained. COMPARISON: None available HISTORY: 30-year old patient with left foot pain. FINDINGS: The visualized soft tissues appear unremarkable. There are no acute osseous abnormalities to suggest a fracture or subluxation within the left foot. There is a well-corticated ossific density distal to the fibula which is likely due to remote injury. IMPRESSION: No acute osseous abnormality is seen within the left foot.
[2020-02-15 23:59] LABS: ALBUMIN 3.5 g/dL (3.5-5.0); ALKALINE PHOSPHATASE 70 U/L (38-126); ANION GAP 7 (5-19); ASPARTATE AMINO TRANSFERASE 16 U/L (14-36); BILIRUBIN,DIRECT 0.3 mg/dL (0.0-0.4); BILIRUBIN,TOTAL 0.3 mg/dL (0.2-1.3); BLOOD UREA NITROGEN 6 mg/dL (7-20); CALCIUM 8.8 mg/dL (8.4-10.2); CARBON DIOXIDE 23 mmol/L (22-30); CHLORIDE 107 mmol/L (98-107); GLUCOSE 102 mg/dL (75-110); POTASSIUM 4.7 mmol/L (3.6-5.0); TOTAL PROTEIN 6.2 g/dL (6.3-8.2)
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
[2020-02-16] MEDS ORDERED: ACETAMINOPHEN WITH CODEINE #3 TABLET PO ONE (00:27)
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
[2020-02-16 01:21] VITALS: BP 115/65
== END 2020-02-16 01:30 | disposition home or self-care (01) ==
LOC: ER 21:52
DX: O9A.213 Injury, poisoning and certain other consequences of external causes complicating pregnancy, third trimester (principal); O99.013 Anemia complicating pregnancy, third trimester; D64.89 Other specified anemias; O26.893 Other specified pregnancy related conditions, third trimester; R60.0 Localized edema; R10.32 Left lower quadrant pain; R10.31 Right lower quadrant pain; M25.572 Pain in left ankle and joints of left foot; M79.672 Pain in left foot; M79.10 Myalgia, unspecified site; R10.2 Pelvic and perineal pain; R68.84 Jaw pain; Z3A.29 29 weeks gestation of pregnancy; O99.333 Smoking (tobacco) complicating pregnancy, third trimester; Y04.0XXA Assault by unarmed brawl or fight, initial encounter; Z88.0 Allergy status to penicillin; Z88.8 Allergy status to other drugs, medicaments and biological substances
CPT/HCPCS: 99285; 36415; 85025; 80053; 73620; 76805; 70486; S0119; J3490 ×3

== ENCOUNTER → 2020-04-11 | Outpatient (CLI) | payer MEDICAID ==
[~2020-04-11] MED LIST: HYDROXYZINE PAMOATE 50 MG CAPSULE ONE; HYDROXYZINE PAMOATE 50 MG CAPSULE PO ONE
[2020-04-11 13:09] LABS: APPEARANCE,URINE CLOUDY; BILIRUBIN,URINE NEGATIVE (NEGATIVE); COLOR,URINE YELLOW; GLUCOSE, URINE 150 mg/dL (NEGATIVE); KETONES,URINE NEGATIVE (NEGATIVE); LEUKOCYTE ESTERASE,URINE SMALL (NEGATIVE); NITRITE,URINE NEGATIVE (NEGATIVE); PROTEIN,URINE NEGATIVE (NEGATIVE); URINE SPECIFIC GRAVITY 1.006; UROBILINOGEN,URINE NEGATIVE mg/dL (<2.0)
[2020-04-11 13:20] LABS: BACTERIA (WET MOUNT) 4+ BACTERIA SEEN; EPITHELIALS (WET MOUNT) 4+ EPITHELIALS SEEN; T.VAGINALIS (WET MOUNT) NO TRICHOMONAS SEEN; WBCS (WET MOUNT) RARE WBCS SEEN; YEAST (WET MOUNT) NO YEAST SEEN
[2020-04-11 13:23] LABS: URINE AMPHETAMINES SCREEN NEGATIVE; URINE BARBITURATES SCREEN NEGATIVE; URINE BENZODIAZEPINES SCREEN NEGATIVE; URINE COCAINE SCREEN NEGATIVE; URINE MARIJUANA (THC) SCREEN NEGATIVE; URINE METHADONE SCREEN NEGATIVE; URINE PHENCYCLIDINE SCREEN NEGATIVE
== END ==
LOC: LC 12:08
PROVIDERS: ATTEND Obstetrics & Gynecology
DX: O26.893 Other specified pregnancy related conditions, third trimester (principal); R10.2 Pelvic and perineal pain; Z3A.36 36 weeks gestation of pregnancy
CPT/HCPCS: 87210; 81005; 80307; 84112; 59025; J3490

== ENCOUNTER 2020-04-28 11:05 | Inpatient (IN) | payer MEDICAID ==
[2020-04-28] MEDS ORDERED: RINGERS SOLUTION,LACTATED 1,000 ML IV PRN (11:28)
[2020-04-28] MEDS ORDERED: OXYTOCIN/0.9 % SODIUM CHLORIDE 30 UNIT/500 ML RTUINJ IV PRN ×2 (11:28→18:38)
[2020-04-28] MEDS ORDERED: DEXTROSE 50%-WATER 25 GM/50 ML DISP.SYRIN IV PRN ×2 (11:34)
[2020-04-28] MEDS ORDERED: GLUCAGON,HUMAN RECOMB 1 MG INJ IM PRN (11:34)
[2020-04-28] MEDS ORDERED: DEXTROSE 40% GEL 15 GM TUBE PO PRN ×2 (11:34)
[2020-04-28 11:41] LABS: ABSOLUTE EOSINOPHILS # (AUTO) 0.2 10^3/uL (0.0-0.6); ABSOLUTE MONOCYTES (AUTO) 0.9 10^3/uL (0.1-1.4); ABSOLUTE NEUT (AUTO) 9.7 10^3/uL (1.7-8.2); BASOPHILS % (AUTO) 0.4 % (0-2); EOSINOPHILS % (AUTO) 1.3 % (0-6); HEMATOCRIT 34.2 % (36.0-47.0); HEMOGLOBIN 11.6 g/dL (12.0-15.5); LYMPHOCYTES % (AUTO) 15.9 % (13-45); MEAN CORPUSCULAR HEMOGLOBIN 28.7 pg (27.0-33.4); MEAN CORPUSCULAR VOLUME 85 fl (80-97); MONOCYTES % (AUTO) 6.8 % (3-13); PLATELET COUNT 225 10^3/uL (150-450); RED BLOOD COUNT 4.05 10^6/uL (3.72-5.28); RED CELL DISTRIBUTION WIDTH 19.3 % (11.5-14.0); SEGMENTED NEUTROPHILS % (AUTO) 75.6 % (42-78); TOTAL CELLS COUNTED % (AUTO) 100 %; WHITE BLOOD COUNT 12.8 10^3/uL (4.0-10.5)
[2020-04-28 11:50] LABS: APPEARANCE,URINE SLIGHTLY-CLOUDY; BILIRUBIN,URINE NEGATIVE (NEGATIVE); COLOR,URINE YELLOW; GLUCOSE, URINE NEGATIVE (NEGATIVE); KETONES,URINE NEGATIVE (NEGATIVE); LEUKOCYTE ESTERASE,URINE SMALL (NEGATIVE); NITRITE,URINE NEGATIVE (NEGATIVE); PROTEIN,URINE NEGATIVE (NEGATIVE); URINE SPECIFIC GRAVITY 1.008; UROBILINOGEN,URINE NEGATIVE mg/dL (<2.0)
[2020-04-28 12:02] LABS: ALBUMIN 3.8 g/dL (3.5-5.0); ALKALINE PHOSPHATASE 116 U/L (38-126); ANION GAP 10 (5-19); ASPARTATE AMINO TRANSFERASE 13 U/L (14-36); BILIRUBIN,DIRECT 0.1 mg/dL (0.0-0.4); BILIRUBIN,TOTAL 0.3 mg/dL (0.2-1.3); BLOOD UREA NITROGEN 5 mg/dL (7-20); CALCIUM 9.5 mg/dL (8.4-10.2); CARBON DIOXIDE 16 mmol/L (22-30); CHLORIDE 108 mmol/L (98-107); GLUCOSE 118 mg/dL (75-110); POTASSIUM 3.8 mmol/L (3.6-5.0); TOTAL PROTEIN 6.8 g/dL (6.3-8.2)
[2020-04-28 12:07] LABS: URINE AMPHETAMINES SCREEN NEGATIVE; URINE BARBITURATES SCREEN NEGATIVE; URINE BENZODIAZEPINES SCREEN NEGATIVE; URINE COCAINE SCREEN NEGATIVE; URINE MARIJUANA (THC) SCREEN NEGATIVE; URINE METHADONE SCREEN NEGATIVE; URINE PHENCYCLIDINE SCREEN NEGATIVE
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
[2020-04-28] MEDS ORDERED: OXYTOCIN/0.9 % SODIUM CHLORIDE 30 UNIT/500 ML RTUINJ ONE (14:06)
--- NOTE | 2020-04-28 17:13 | L&D Progress Notes ---
PROGRESS NOTES Datetime Report Generated by CPN: 04/28/2020 17:13 PROGRESS NOTE Impression: Reassuring Heart Rate Procedures: Artificial ROM; Sterile Vag Exam Plan: Continue Present Management; Induction Vital Signs : Reviewed; Within Normal Limits Comment: Pitocin infusing, VE /-1. AROM w/ scant amount of clear fluid. Pt desires an epidural when labor gets more intense. Position changes encouraged. Anticipate . Attending MD is Dr Long. LAST VAGINAL EXAM-NURSING Nursing Exam Dilitation: 3.0 Nursing Exam Effacement: 70 Nursing Exam Station: -1 Nursing Exam Contractions: RN at bedside adjusting toco MEMBRANES Membranes: Ruptured Amniotic Fluid Color: Clear FETUS A FHR - Baseline: 135 Monitoring: External US Variability: Moderate 6-25bpm Accelerations: 15X15 Decelerations: None FHR Category: Category I SIGNATURE SIGNATURE: [id number];[id number] Assignment: Ruth Long MD Signature: with User ID: [email or web address] : with User ID: [email or web address]
[2020-04-28] MEDS ORDERED: EPHEDRINE SULFATE INJ 50 MG/1 ML AMPULE ONE (17:56)
[2020-04-28] MEDS ORDERED: OXYTOCIN 10 UNIT/ML VIAL ONE (17:57)
[2020-04-28] MEDS ORDERED: ROPIVACAINE HCL 0.2% INJ/PF (2 MG/ML) 20 ML SDV ONE (17:57)
[2020-04-28] MEDS ORDERED: FENTANYL/BUPIVACAINE/NS/PF 300 MCG/150 ML RTUINJ EPI ONE (17:57)
[2020-04-28] MEDS ORDERED: MISOPROSTOL 0.2 MG TABLET ONE (17:57)
[2020-04-28] MEDS ORDERED: PROMETHAZINE HCL 25 MG TABLET PO PRN (18:38)
[2020-04-28] MEDS ORDERED: PSEUDOEPHEDRINE HCL 30 MG TABLET PO PRN (18:38)
[2020-04-28] MEDS ORDERED: NA PHOS,M-B/NA PHOS,DI-BA (ADULT) 133 ML ENEMA PR PRN (18:38)
[2020-04-28] MEDS ORDERED: BENZOCAINE/MENTHOL AEROSOL SPRAY 56 ML TOP PRN (18:38)
[2020-04-28] MEDS ORDERED: GLYCERIN/WITCH HAZEL LEAF 1 EACH MED..WIPE TP PRN (18:38)
[2020-04-28] MEDS ORDERED: MEASLES,MUMPS&RUBELLA VACC/PF 0.5 ML VIAL SUBCUT PRN (18:38)
[2020-04-28] MEDS ORDERED: ACETAMINOPHEN 650 MG SUPP.RECT PR PRN (18:38)
[2020-04-28] MEDS ORDERED: DIBUCAINE 1% OINTMENT 28 GM TP PRN (18:38)
[2020-04-28] MEDS ORDERED: PROMETHAZINE HCL INJ 25 MG/1 ML VIAL IV PRN (18:38)
[2020-04-28] MEDS ORDERED: PROMETHAZINE HCL 25 MG SUPP.RECT PR PRN (18:38)
[2020-04-28] MEDS ORDERED: ACETAMINOPHEN WITH CODEINE #3 TABLET PO PRN (18:38)
[2020-04-28] MEDS ORDERED: ZOLPIDEM TARTRATE 5 MG TABLET PO PRN (18:38)
[2020-04-28] MEDS ORDERED: MAGNESIUM HYDROXIDE SUSP 30 ML UDCUP PO PRN (18:38)
[2020-04-28] MEDS ORDERED: IBUPROFEN 800 MG TABLET ONE (19:12)
--- NOTE | 2020-04-28 20:13 | Birth Certificate Data ---
Cert Data Datetime Report Generated by CPN: 04/28/2020 20:13 CERTIFICATE DATA Delivery Provider: Ruth Long MD (04/11/2020 12:21:Ruth Long MD ([facility])) 47a. Care: Yes (04/11/2020 12:21:Wendy Duffy RN) 47b. Date of First Visit: 11/25/2019 00:00 (04/11/2020 12:21:Wendy Duffy RN) 47c. Date of Last Visit: 04/07/2020 00:00 (04/11/2020 12:21:Wendy Duffy RN) 47d. Number of Visits: 8 (04/11/2020 12:21:Wendy Duffy RN) 48a. Number of Prev Live Births: 3 (04/11/2020 12:21:Wendy Duffy RN) 48b. Now Livin (04/11/2020 12:21:Wendy Duffy RN) 48c. Live Births Now : 0 (04/11/2020 12:21:QS system process) 48d. Date of Last Live : 12/20/2018 00:00 (04/11/2020 12:21:Wendy Duffy RN) 48e. Losses: 5 (04/11/2020 12:21:Wendy Duffy RN) 48f. Date of Last Preg Loss: 04/23/2013 00:00 (04/11/2020 12:21:Wendy Duffy RN) RISK FACTORS IN THIS 49a. Diabetes: No (04/11/2020 12:21:Wendy Duffy RN) Type of Diabetes: Gestational Diabetes (04/11/2020 12:21:Rhina Winkler RN) 49b. Hypertension: No (04/11/2020 12:21:Rhina Winkler RN) 49d. Stillborns: No (04/11/2020 12:21:Rhina Winkler RN) 49d. IUGR: No (04/11/2020 12:21:Rhina Winkler RN) 49e. Infertility Treatment: No (04/11/2020 12:21:Rhina Winkler RN) Mother's Height 50b. Height Inches: 64 (04/28/2020 11:37:QS system process) Mother's Weight 51a. Pre- Weight (lbs): 179 (04/11/2020 12:21:Wendy Duffy RN) 51b. Weight at Delivery (lbs): 189 (04/28/2020 11:37:QS system process) 52. Dt Last Normal Menses Began: 07/30/2019 00:00 (04/11/2020 12:21:Rhina Winkler RN) Infections Present/Treated 53a. Gonorrhea: No (04/11/2020 12:21:Rhina Winkler RN) Results this Hospital Visit : Negative (04/11/2020 12:21:Rhina Winkler RN) 53b. Syphilis: No (04/11/2020 12:21:Wendy Duffy RN) 53c. Chlamydia: Yes (04/11/2020 12:21:Rhina Winkler RN) Results this Hospital Visit: Negative (04/11/2020 12:21:Rhina Winkler RN) 53d. Hepatitis B: No (04/11/2020 12:21:Wendy Duffy RN) Results this Hospital Visit: Negative (04/11/2020 12:21:Wendy Duffy RN) 53h. Mother Tested for HBsAG: Yes (04/11/2020 12:21:Wendy Duffy RN) 53i. Date Tested: 02/12/2020 00:00 (04/11/2020 12:21:Wendy Duffy RN) 53j. Test Result: Negative (04/11/2020 12:21:Wendy Duffy RN) Obstetric Procedures 54a, b, c. Obstetric Procedures: Ultrasound (04/11/2020 12:21:Rhina Winkler RN) Cigarette Smoking Cigarette Smoking: Current Some Day Smoker. [id number] (04/11/2020 12:21:Rhina Winkler RN) 55a. Packs: 1 (04/11/2020 12:21:Wendy Duffy RN) 55b. Packs: 1 (04/11/2020 12:21:Wendy Duffy RN) 55c. Packs: 1 (04/11/2020 12:21:Wendy Duffy RN) 55d. Packs: 1 (04/11/2020 12:21:Wendy Duffy RN) Onset of Labor 56a. PROM >12 Hrs: 1.42 (04/11/2020 12:21:QS system process) 56b. Precipitous Labor <3 Hrs: 1 (04/11/2020 12:21:QS system process) 56c. Prolonged Labor > 20 Hrs: 1 (04/11/2020 12:21:QS system process) 57a. Induction of Labor: Induction (04/11/2020 12:21:Arianna Esposito RN) 57c. Non-Vertex Presentation A: Vertex (04/11/2020 12:21:Ruth Long MD ([facility])) 57d. Steroids - Lung Mat: None (04/11/2020 12:21:Arianna Esposito RN) 57d. Steroids - Lung Mat: Not Applicable (04/11/2020 12:21:Arianna Esposito RN) 57f. Mat Chorio or Temp >100.4: 98.9 (04/11/2020 12:21:Wnedy Duffy RN) 57g. Moderate/Heavy Meconium: Clear (04/28/2020 16:55:Wendy Duffy RN) 57h. Intolerance of Labor: N/A (04/11/2020 12:21:Wendy Duffy RN) : N/A (04/11/2020 12:21:Hardik Wilson RN) 57i. Epidural/Spinal Anesthesia: Epidural (04/11/2020 12:21:Arianna Esposito RN) Method of Delivery 58a. Forceps - Unsuccessful A: N/A (04/11/2020 12:21:Arianna Esposito RN) 58b. Vacuum - Unsuccessful A: N/A (04/11/2020 12:21:Arianna Esposito RN) 58c. Presentation at 58c. Presentation at - A : Vertex (04/11/2020 12:21:Ruth Long MD ([facility])) 58c. Presentation at - A : N/A (04/11/2020 12:21:Ruth Long MD ([facility])) 58c. Presentation at - A : Cephalic (04/11/2020 12:21:Ruth Long MD ([facility])) Final Route and Method of Del 58d. Baby A Route/Delivery: Vaginal (04/28/2020 18:20:Garett Barrios RN) 58e. Trial of Labor Attempted: No (04/11/2020 12:21:Arianna Esposito RN) 58e. Trial of Labor Attempted A: N/A (04/11/2020 12:21:Arianna Esposito RN) 58e. Trial of Labor Attempted B: N/A (04/11/2020 12:21:Arianna Esposito RN) Maternal Morbidity 59b. 3rd or 4th Degree Lacs: None (04/11/2020 12:21:Ruth Long MD ([facility])) Birthweight Baby A: 2780 (04/11/2020 12:21:Hardik Wilson, RN) 60a. Pounds : 6 (04/11/2020 12:21:QS system process) 60b. Ounces: 2 (04/11/2020 12:21:QS system process) 61. GA at Delivery Baby A: 39.0 (04/11/2020 12:21:Arianna Sales, RN) : Full Term- 39- 40.6 Weeks (04/11/2020 12:21:QS system process) 62a. 5 Minute Baby A: 9 (04/11/2020 12:21:QS system process)
--- NOTE | 2020-04-28 20:13 | Warning Signs in Babies ---
VOD Warning Signs Datetime Report Generated by N: 04/28/2020 20:13 VOD#[id number] -Warning Signs in Babies: Viewed with Parent(s)/Family (04/11/2020 12:21:Hardik Wilson RN)
--- NOTE | 2020-04-28 20:13 | Delivery Summary ---
Del Sum A-C Datetime Report Generated by CPN: 04/28/2020 20:13 DELIVERY PERSONNEL DELIVERY PERSONNEL: [id number] Delivery Doctor:: Ruth Long MD OCCUPATIONAL HEALTH AND SAFETY ADVISER:: Ligia Rios CRNA Labor and Delivery Nurse:: Wendy Duffy RNauto service writer Nurse:: Arianna Esposito RN Nursery Nurse:: Alana Reyes RN MATERNAL INFORMATION Delivery Anesthesia: None Medications After Delivery: Pitocin 30 Units in 500ml NS/D5W Estimated Blood Loss (ml): 250 Delivery QBL: 250 Maternal Complications: Precipitous Labor (<3hrs) LABOR SUMMARY EDC: 05/05/2020 00:00 No. Babies in Womb: 1 Attempted: No Labor Anesthesia: Epidural LABOR INFORMATION Reason for Induction: Maternal Diabetes Onset of Labor: 04/28/2020 16:55 Complete Dilatation: 04/28/2020 18:10 Oxytocin: Induction Group B Beta Strep: negative Antibiotics # of Doses: 0 Name of Antibiotic Given: N/A Steroids Given: None Reason Steroids Not Administered: Not Applicable MEMBRANES Membranes Rupture Method: Artificial Rupture of Membranes: 04/28/2020 16:55 Length of Rupture (hr): 1.42 Amniotic Fluid Color: Clear Amniotic Fluid Amount: Small Amniotic Fluid Odor: Normal STAGES OF LABOR Stage 1 hr: 1 Stage 1 min: 15 Stage 2 hr: 0 Stage 2 min: 10 Stage 3 hr: 0 Stage 3 min: 8 Total Time in Labor hr: 1 Total Time in Labor min: 33 VAGINAL DELIVERY Episiotomy: None Laceration #1: None Laceration Extension #1: N/A Laceration Repair: Not Applicable Sponge Count Correct: Vaginal Sweep Performed CSECTION DELIVERY Primary Indication: N/A Secondary Indication: N/A CSection Incidence: N/A Labor: N/A Elective: N/A CSection Incision: N/A BABY A INFORMATION Infant Delivery Date/Time: 04/28/2020 18:20 Method of Delivery: Vaginal Nurse Controlled Delivery: No Born in Route : No : N/A Forceps: N/A Vacuum Extraction: N/A Shoulder Dystocia : No PRESENTATION/POSITION BABY A Presentation: Cephalic Cephalic Presentation: Vertex Vertex Position: Left Occipital Anterior Breech Presentation: N/A PLACENTA INFORMATION BABY A Placenta Delivery Time : 04/28/2020 18:28 Placenta Method of Delivery: Spontaneous Placenta Status: Delivered SCORES BABY A Heart Rate 1 min: >100 bpm Resp Effort 1 min: Good Cry Reflex Irritability 1 min: Cough or Sneeze or Pulls Away Muscle Tone 1 min: Active Motion Color 1 min: Blue/Pale SCORE 1 MIN: 8 Heart Rate 5 min: >100 bpm Resp Effort 5 min: Good Cry Reflex Irritability 5 min: Cough or Sneeze or Pulls Away Muscle Tone 5 min: Active Motion Color 5 min: Body [place], Extremities Blue SCORE 5 MIN: 9 INFORMATION BABY A Gestational Age at Delivery: 39.0 Gestational Status: Full Term- 39- 40.6 Weeks Infant Outcome : Liveborn Infant Condition : Stable Sex: Female WEIGHT/LENGTH BABY A Birthweight (gm): 2780 Infant Weight (lb): 6 Weight (oz): 2 Length (in): 19.00 Infant Length (cm): 48.26 CORD INFORMATION BABY A No. Cord Vessels: 3 Nuchal Cord : Around Neck x1, Loose Cord Blood Taken: Yes-For Eval (Mom's Blood Type - or O+) Suction: None ASSESSMENT BABY A Infant Complications: None Physical Findings at Delivery: Within Normal Limits Respirations: Appears Normal Skin to Skin: Yes Transferred To: Remains with Mother BABY B INFORMATION : N/A SIGNATURES Signature: with User ID: [email or web address]
[2020-04-28] MEDS ORDERED: ACETAMINOPHEN WITH CODEINE #3 TABLET ONE (20:36)
--- NOTE | 2020-04-28 21:23 | Birth Certificate Data ---
Cert Data Datetime Report Generated by CPN: 04/28/2020 21:22 CERTIFICATE DATA Delivery Provider: Ruth Long MD (04/11/2020 12:21:Ruth Long MD ([facility])) 47a. Care: Yes (04/11/2020 12:21:Wendy Duffy RN) 47b. Date of First Visit: 11/25/2019 00:00 (04/11/2020 12:21:Wendy Duffy RN) 47c. Date of Last Visit: 04/07/2020 00:00 (04/11/2020 12:21:Wendy Duffy RN) 47d. Number of Visits: 8 (04/11/2020 12:21:Wendy Duffy RN) 48a. Number of Prev Live Births: 3 (04/11/2020 12:21:Wendy Duffy RN) 48b. Now Livin (04/11/2020 12:21:Wendy Duffy RN) 48c. Live Births Now : 0 (04/11/2020 12:21:QS system process) 48d. Date of Last Live : 12/20/2018 00:00 (04/11/2020 12:21:Wendy Duffy RN) 48e. Losses: 5 (04/11/2020 12:21:Wendy Duffy RN) 48f. Date of Last Preg Loss: 04/23/2013 00:00 (04/11/2020 12:21:Wendy Duffy RN) RISK FACTORS IN THIS 49a. Diabetes: No (04/11/2020 12:21:Wendy Duffy RN) Type of Diabetes: Gestational Diabetes (04/11/2020 12:21:Rhina Winkler RN) 49b. Hypertension: No (04/11/2020 12:21:Rhina Winkler RN) 49d. Stillborns: No (04/11/2020 12:21:Rhina Winkler RN) 49d. IUGR: No (04/11/2020 12:21:Rhina Winkler RN) 49e. Infertility Treatment: No (04/11/2020 12:21:Rhina Winkler RN) Mother's Height 50b. Height Inches: 64 (04/28/2020 20:49:QS system process) Mother's Weight 51a. Pre- Weight (lbs): 179 (04/11/2020 12:21:Wendy Duffy RN) 51b. Weight at Delivery (lbs): 189 (04/28/2020 20:49:QS system process) 52. Dt Last Normal Menses Began: 07/30/2019 00:00 (04/11/2020 12:21:Rhina Winkler RN) Infections Present/Treated 53a. Gonorrhea: No (04/11/2020 12:21:Rhina Winkler RN) Results this Hospital Visit : Negative (04/11/2020 12:21:Rhina Winkler RN) 53b. Syphilis: No (04/11/2020 12:21:Wendy Duffy RN) 53c. Chlamydia: Yes (04/11/2020 12:21:Rhina Winkler RN) Results this Hospital Visit: Negative (04/11/2020 12:21:Rhina Winkler RN) 53d. Hepatitis B: No (04/11/2020 12:21:Wendy Duffy RN) Results this Hospital Visit: Negative (04/11/2020 12:21:Wendy Duffy RN) 53h. Mother Tested for HBsAG: Yes (04/11/2020 12:21:Wendy Duffy RN) 53i. Date Tested: 02/12/2020 00:00 (04/11/2020 12:21:Wendy Duffy RN) 53j. Test Result: Negative (04/11/2020 12:21:Wendy Duffy RN) Obstetric Procedures 54a, b, c. Obstetric Procedures: Ultrasound (04/11/2020 12:21:Rhina Winkler RN) Cigarette Smoking Cigarette Smoking: Current Some Day Smoker. [id number] (04/11/2020 12:21:Rhina Winkler RN) 55a. Packs: 1 (04/11/2020 12:21:Wendy Duffy RN) 55b. Packs: 1 (04/11/2020 12:21:Wendy Duffy RN) 55c. Packs: 1 (04/11/2020 12:21:Wendy Duffy RN) 55d. Packs: 1 (04/11/2020 12:21:Wendy Duffy RN) Onset of Labor 56a. PROM >12 Hrs: 1.42 (04/11/2020 12:21:QS system process) 56b. Precipitous Labor <3 Hrs: 1 (04/11/2020 12:21:QS system process) 56c. Prolonged Labor > 20 Hrs: 1 (04/11/2020 12:21:QS system process) 57a. Induction of Labor: Induction (04/11/2020 12:21:Arianna Esposito RN) 57c. Non-Vertex Presentation A: Vertex (04/11/2020 12:21:Ruth Long MD ([facility])) 57d. Steroids - Lung Mat: None (04/11/2020 12:21:Arianna Esposito RN) 57d. Steroids - Lung Mat: Not Applicable (04/11/2020 12:21:Arianna Esposito RN) 57f. Mat [place]orio or Temp >100.4: 98.9 (04/11/2020 12:21:Wendy Duffy RN) 57g. Moderate/Heavy Meconium: Clear (04/28/2020 16:55:Wendy Duffy RN) 57h. Intolerance of Labor: N/A (04/11/2020 12:21:Wendy Duffy RN) : N/A (04/11/2020 12:21:Hardik Wilson RN) 57i. Epidural/Spinal Anesthesia: Epidural (04/11/2020 12:21:Arianna Esposito RN) Method of Delivery 58a. Forceps - Unsuccessful A: N/A (04/11/2020 12:21:Arianna Esposito RN) 58b. Vacuum - Unsuccessful A: N/A (04/11/2020 12:21:Arianna Esposito RN) 58c. Presentation at 58c. Presentation at - A : Vertex (04/11/2020 12:21:Ruth Long MD ([facility])) 58c. Presentation at - A : N/A (04/11/2020 12:21:Ruth Long MD ([facility])) 58c. Presentation at - A : Cephalic (04/11/2020 12:21:Ruth Long MD ([facility])) Final Route and Method of Del 58d. Baby A Route/Delivery: Vaginal (04/28/2020 18:20:Garett Barrios RN) 58e. Trial of Labor Attempted: No (04/11/2020 12:21:Arianna Esposito RN) 58e. Trial of Labor Attempted A: N/A (04/11/2020 12:21:Arianna Esposito RN) 58e. Trial of Labor Attempted B: N/A (04/11/2020 12:21:Arianna Esposito RN) Maternal Morbidity 59b. 3rd or 4th Degree Lacs: None (04/11/2020 12:21:Ruth Long MD ([facility])) Birthweight Baby A: 2780 (04/11/2020 12:21:Hardik Wilson, RN) 60a. Pounds : 6 (04/11/2020 12:21:QS system process) 60b. Ounces: 2 (04/11/2020 12:21:QS system process) 61. GA at Delivery Baby A: 39.0 (04/11/2020 12:21:Arianna Sales, RN) : Full Term- 39- 40.6 Weeks (04/11/2020 12:21:QS system process) 62a. 5 Minute Baby A: 9 (04/11/2020 12:21:QS system process)
--- NOTE | 2020-04-28 21:23 | Delivery Summary ---
Del Sum A-C Datetime Report Generated by CPN: 04/28/2020 21:22 DELIVERY PERSONNEL DELIVERY PERSONNEL: [id number] Delivery Doctor:: Ruth Long MD REBAR FABRICATOR:: Ligia Rios CRNA Labor and Delivery Nurse:: Wendy Duffy RNvice president and portfolio manager Nurse:: Arianna Esposito RN Nursery Nurse:: Alana Reyes RN MATERNAL INFORMATION Delivery Anesthesia: None Medications After Delivery: Pitocin 30 Units in 500ml NS/D5W Estimated Blood Loss (ml): 250 Delivery QBL: 250 Maternal Complications: Precipitous Labor (<3hrs) LABOR SUMMARY EDC: 05/05/2020 00:00 No. Babies in Womb: 1 Attempted: No Labor Anesthesia: Epidural LABOR INFORMATION Reason for Induction: Maternal Diabetes Onset of Labor: 04/28/2020 16:55 Complete Dilatation: 04/28/2020 18:10 Oxytocin: Induction Group B Beta Strep: negative Antibiotics # of Doses: 0 Name of Antibiotic Given: N/A Steroids Given: None Reason Steroids Not Administered: Not Applicable MEMBRANES Membranes Rupture Method: Artificial Rupture of Membranes: 04/28/2020 16:55 Length of Rupture (hr): 1.42 Amniotic Fluid Color: Clear Amniotic Fluid Amount: Small Amniotic Fluid Odor: Normal STAGES OF LABOR Stage 1 hr: 1 Stage 1 min: 15 Stage 2 hr: 0 Stage 2 min: 10 Stage 3 hr: 0 Stage 3 min: 8 Total Time in Labor hr: 1 Total Time in Labor min: 33 VAGINAL DELIVERY Episiotomy: None Laceration #1: None Laceration Extension #1: N/A Laceration Repair: Not Applicable Sponge Count Correct: Vaginal Sweep Performed CSECTION DELIVERY Primary Indication: N/A Secondary Indication: N/A CSection Incidence: N/A Labor: N/A Elective: N/A CSection Incision: N/A BABY A INFORMATION Infant Delivery Date/Time: 04/28/2020 18:20 Method of Delivery: Vaginal Nurse Controlled Delivery: No Born in Route : No : N/A Forceps: N/A Vacuum Extraction: N/A Shoulder Dystocia : No PRESENTATION/POSITION BABY A Presentation: Cephalic Cephalic Presentation: Vertex Vertex Position: Left Occipital Anterior Breech Presentation: N/A PLACENTA INFORMATION BABY A Placenta Delivery Time : 04/28/2020 18:28 Placenta Method of Delivery: Spontaneous Placenta Status: Delivered SCORES BABY A Heart Rate 1 min: >100 bpm Resp Effort 1 min: Good Cry Reflex Irritability 1 min: Cough or Sneeze or Pulls Away Muscle Tone 1 min: Active Motion Color 1 min: Blue/Pale SCORE 1 MIN: 8 Heart Rate 5 min: >100 bpm Resp Effort 5 min: Good Cry Reflex Irritability 5 min: Cough or Sneeze or Pulls Away Muscle Tone 5 min: Active Motion Color 5 min: Body [place], Extremities Blue SCORE 5 MIN: 9 INFORMATION BABY A Gestational Age at Delivery: 39.0 Gestational Status: Full Term- 39- 40.6 Weeks Infant Outcome : Liveborn Infant Condition : Stable Sex: Female IDENTIFICATION BABY A Infant Verification Date/Time: 04/28/2020 20:13 ID Band Number: [id number] Mother's Name Verified: Yes Infant RN Verifying Infant: Terrence Wilson, JERRY Additional Verifying Personnel: Jolynn Peacock, [facility] WEIGHT/LENGTH BABY A Infant Birthweight (gm): 2780 Infant Weight (lb): 6 Weight (oz): 2 Infant Length (in): 19.00 Length (cm): 48.26 CORD INFORMATION BABY A No. Cord Vessels: 2 Nuchal Cord : Around Neck x1, Loose Cord Blood Taken: Yes-For Eval (Mom's Blood Type - or O+) Infant Suction: None ASSESSMENT BABY A Infant Complications: None Physical Findings at Delivery: Within Normal Limits Respirations: Appears Normal Skin to Skin: Yes Skin to Skin Time (min): 60 Transferred To: Remains with Mother BABY B INFORMATION : N/A SIGNATURES Signature: with User ID: [email or web address]
[2020-04-28] MEDS: IBUPROFEN 800 MG TABLET PO SCH (22:26)
[2020-04-28] MEDS: FAMOTIDINE 20 MG TABLET PO SCH (22:28)
[2020-04-29] MEDS: ACETAMINOPHEN WITH CODEINE #3 TABLET PO PRN ×4 (02:06→20:32)
[2020-04-29] MEDS: IBUPROFEN 800 MG TABLET PO SCH ×3 (06:03→22:47)
[2020-04-29 07:54] LABS: MEAN CORPUSCULAR HGB CONC 34.3 g/dL (32.0-36.0); MEAN CORPUSCULAR VOLUME 85 fl (80-97); PLATELET COUNT 189 10^3/uL (150-450); RED BLOOD COUNT 3.43 10^6/uL (3.72-5.28); RED CELL DISTRIBUTION WIDTH 19.3 % (11.5-14.0); WHITE BLOOD COUNT 14.7 10^3/uL (4.0-10.5)
[2020-04-29] MEDS: PRENATAL VITAMIN W DHA CAPSULE PO SCH (10:34)
[2020-04-29] MEDS: FAMOTIDINE 20 MG TABLET PO SCH ×2 (10:34→22:47)
[2020-04-29] MEDS: SENNOSIDES/DOCUSATE 8.6-50 MG 1 EACH TABLET PO SCH (10:34)
[2020-04-29] MEDS: DOCUSATE SODIUM 100 MG CAPSULE PO SCH ×2 (10:34→17:01)
[2020-04-29] MEDS: FERROUS SULFATE 325 MG TABLET PO SCH ×2 (10:34→17:01)
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
[2020-04-30] MEDS: IBUPROFEN 800 MG TABLET PO SCH (06:17)
[2020-04-30] MEDS: ACETAMINOPHEN WITH CODEINE #3 TABLET PO PRN (06:46)
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
[2020-04-30] MEDS: DOCUSATE SODIUM 100 MG CAPSULE PO SCH (09:48)
[2020-04-30] MEDS: FAMOTIDINE 20 MG TABLET PO SCH (09:48)
[2020-04-30] MEDS: SENNOSIDES/DOCUSATE 8.6-50 MG 1 EACH TABLET PO SCH (09:48)
[2020-04-30] MEDS: FERROUS SULFATE 325 MG TABLET PO SCH (09:48)
[2020-04-30] MEDS: PRENATAL VITAMIN W DHA CAPSULE PO SCH (09:48)
[2020-04-30 11:19] VITALS: BP 131/73
== END 2020-04-30 13:49 | disposition home or self-care (01) | DRG 806 ==
LOC: LR 11:05 → 2S 20:49
PROVIDERS: ADMIT Obstetrics & Gynecology; ATTEND Obstetrics & Gynecology
PROC: 10E0XZZ Delivery of Products of Conception, External Approach (ICD-10-PCS; principal; 2020-04-28)
PROC: 3E0234Z Introduction of Serum, Toxoid and Vaccine into Muscle, Percutaneous Approach (ICD-10-PCS; 2020-04-30)
DX: O24.429 Gestational diabetes mellitus in childbirth, unspecified control (principal); O99.324 Drug use complicating childbirth; Z37.0 Single live birth; O62.3 Precipitate labor; O69.81X0 Labor and delivery complicated by cord around neck, without compression, not applicable or unspecified; Z3A.39 39 weeks gestation of pregnancy; O99.334 Smoking (tobacco) complicating childbirth; F17.210 Nicotine dependence, cigarettes, uncomplicated; Z91.040 Latex allergy status; Z88.8 Allergy status to other drugs, medicaments and biological substances; O26.893 Other specified pregnancy related conditions, third trimester; Z67.11 Type A blood, Rh negative; F12.90 Cannabis use, unspecified, uncomplicated; Z91.410 Personal history of adult physical and sexual abuse
CPT/HCPCS: 1967; 36415; 80053; 80307; 81001; 82962; 85025; 85027; 85461; 86592; 86850; 86870; 86900; 86901; 86920; 86922; J2590; J2790; J2795; J3010; J3490